=== PATIENT | female | born 1940 | race Caucasian/White ===

== ENCOUNTER 2016-07-26 12:20 | Inpatient (IN) | payer OTHER ==
--- NOTE | 2016-07-26 12:43 | PDOC ---
History of Present Illness - General Stated Complaint: Nausea/Vomiting Time Seen by Provider: 07/26/16 12:25 History Source: Patient, Family - History of Present Illness Timing/Duration: other Associated Symptoms: reports: cough, malaise, nausea/vomiting, shortness of breath. denies: fever/chills Past History - Past Medical History Allergies/Adverse Reactions: Allergies Allergy/AdvReac Type Severity Reaction Status Date / Time No Known Drug Allergies Allergy Verified 07/26/16 12:55 Home Medications: Ambulatory Orders Acidoph/L.bulg/Bif.b/S.thermop [Siomara-Bid Caplet] 1 each PO BID 07/26/16 Albuterol 2.5/Ipratropium 0.5 [Duoneb -] 1 neb IH QID 07/26/16 Ascorbic Acid [Vitamin C -] 1,000 mg PO DAILY 07/26/16 Aspirin [ASA -] 81 mg PO DAILY 07/26/16 Atorvastatin Calcium 20 mg PO DAILY 07/26/16 Calcium Carbonate [Oyster Shell Calcium] 500 mg PO BID 07/26/16 Enalapril Maleate [Vasotec -] 5 mg PO BID 07/26/16 Levothyroxine Sodium [Levo-T] 137 mcg PO DAILY 07/26/16 Metoprolol Succinate [Toprol Xl -] 50 mg PO DAILY 07/26/16 Multivitamins [Tab-A-Vit -] 1 tab PO DAILY 07/26/16 Naph,Mb-Db/K pH,Mbdb [PHOS-NaK PACKET -] 1 packet GT BID 07/26/16 Pantoprazole Sodium [Protonix -] 40 mg PO DAILY 07/26/16 Pilocarpine HCl [Isopto Carpine] 2 drop OP PRN 07/26/16 Torsemide [Demadex] 40 mg PO DAILY 07/26/16 Tramadol HCl [Ultram] 50 mg PO Q6H 07/26/16 Anemia: No Asthma: No Cancer: No Cardiac Disorders: Yes (quad. bypass) CVA: No COPD: No CHF: Yes Dementia: No Diabetes: Yes GI Disorders: Yes (reflux) Disorders: No HTN: Yes Hypercholesterolemia: Yes Liver Disease: No Seizures: No Thyroid Disease: Yes (hypo) - Surgical History Abdominal Surgery: No Appendectomy: No Cardiac Surgery: Yes (quad. BYPASS 2000) Cholecystectomy: No Lung Surgery: No Neurologic Surgery: No Orthopedic Surgery: Yes (L CARPAL TUNNEL,l wrist orif, r wrist tendonitis sx,) - Immunization History Immunization Up to Date: Yes - Psycho/Social/Smoking Cessation Hx Anxiety: No Suicidal Ideation: No Smoking Status: Yes Smoking History: Former smoker Have you smoked in the past 12 months: No Number of Cigarettes Smoked Daily: 0 If you are a former smoker, when did you quit?: 1994 Cigars Per Day: 0 Hx Alcohol Use: No Drug/Substance Use Hx: No Substance Use Type: None Hx Substance Use Treatment: No Review of Systems - Review of Systems Constitutional: No: Chills, Fever Respiratory: Yes: Cough, Shortness of Breath Cardiac (ROS): No: Chest Pain, Palpitations, Syncope ABD/GI: Yes: Nausea. No: Vomiting, Abdominal cramping : No: Dysuria *Physical Exam - Physical Exam General Appearance: Yes: Appropriately Dressed, Other (appears uncomfortable) HEENT: positive: Normal Voice Neck: positive: Supple Respiratory/Chest: positive: Lungs Clear, Normal Breath Sounds. negative: Respiratory Distress Cardiovascular: positive: Regular Rate, S1, S2 Gastrointestinal/Abdominal: positive: Soft. negative: Tender Extremity: positive: Normal Inspection, Pedal Edema Integumentary: positive: Dry, Warm Neurologic: positive: Fully Oriented, Alert, Normal Mood/Affect ED Treatment Course - LABORATORY CBC & Chemistry Diagram: 07/26/16 13:37 07/26/16 13:37 - RADIOLOGY Radiology Studies Ordered: Category Date Time Status CHEST X-RAY PORTABLE* [RAD] Stat Radiology 07/26/16 12:42 Ordered Medical Decision Making - Medical Decision Making 07/26/16 12:43 75-year-old female, hypertension, hyperlipidemia, CAD status post CABG, CHF on Lasix and oxygen dependent, PVD, COPD status post surgery for bowel perf/ peritonitis, sent from [facility] for cough with nausea and possibly worsening of her shortness of breath. Patient has history of chronic pedal edema, which is intermittent but for the past 3 weeks has been persistent as per daughter. Patient states she feels weak and dizzy. Denies chest pain, diaphoresis, nausea, vomiting, headache, focal weakness, abdominal pain, change in bowel movements or dysuria See exam Cough w/ worsening sob ?PNA vs BNP flare vs ACS Sating 89-90% on 5 L Chest/lungs clear w/ 2+ edema -ekg -cxr -labs -anticipate admission 07/26/16 13:31 07/26/16 13:43 CXR w/ multiple R sided infiltrates and pleural effusion. Abx to cover HAP in progress. Will admit 07/26/16 14:50 BNP >40K w/ trop of 0.6 w/ unchanged ekg as d/w Dr Rangel, m/l demand ischemia. Elevated LFTs m/l due to CHF flare. Pt has no abd pain and non-tender on exam. Lasix in progress w/ cards consult pending. As per d/w Dr Mata, Dr diaz of cards to be c/s. 07/26/16 16:02 ED nurse called me over to pt's bedside as pt became diaphoretic. 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 As per Dr Rangel, will give asa, heparin and c/w cards. Rpt trop pending. Of note, pt refusing intubation if necessary. 07/26/16 16:06 07/26/16 16:08 As per cards, pt to also get nitropaste. Pt currently has ready bed on tele floor 07/26/16 16:18 07/26/16 18:25 Dr. Nickerson called to get an update on patient and informed of disposition. *DC/Admit/Observation/Transfer Diagnosis at time of Disposition: Transaminitis Pneumonia Qualifiers: Pneumonia type: due to unspecified organism Laterality: right Lung location: unspecified part of lung Qualified Code(s): J18.9 - Pneumonia, unspecified organism ARF (acute renal failure) Qualifiers: Acute renal failure type: unspecified Qualified Code(s): N17.9 - Acute kidney failure, unspecified CHF (congestive heart failure) Qualifiers: Congestive heart failure type: unspecified congestive heart failure type Congestive heart failure chronicity: acute on chronic Qualified Code(s): I50.9 - Heart failure, unspecified - Discharge Dispostion Condition at time of disposition: Fair Admit: Yes - Referrals
[2016-07-26 12:54] VITALS: BMI 28.1
[2016-07-26] MEDS ORDERED: ONDANSETRON 4 MG/2 ML VIAL IVPUSH ONE ×2 (13:21→16:09)
[2016-07-26] MEDS ORDERED: ONDANSETRON 4 MG/2 ML VIAL ONE ×2 (13:22→15:55)
[2016-07-26] MEDS ORDERED: CEFEPIME HCL 2 GM VIAL (RESTRICTED TO ID) IVPB ONE (13:42)
[2016-07-26] MEDS ORDERED: AZITHROMYCIN IVPB 500 MG in DEXTROSE 5%-WATER - 250 ML IVPB ONE (13:42)
[2016-07-26] MEDS ORDERED: VANCOMYCIN 1,000 MG in DEXTROSE 5%-WATER - 250 ML IVPB ONE (13:42)
[2016-07-26 13:54] LABS: BASOPHIL 0.3 % (0-2.0); EOSINOPHIL 0.1 % (0-4.5); MCH 24.9 pg (25.7-33.7); MCHC 30.5 g/dl (32.0-36.0); MEAN CELL VOLUME 81.8 fl (80-96); NEUTROPHILS 77.9 % (42.8-82.8); PLATELET COUNT 361 K/MM3 (134-434); RDW 18.7 % (11.6-15.6); WHITE BLOOD COUNT 11.9 K/mm3 (4.0-10.0)
[2016-07-26] MEDS ORDERED: VANCOMYCIN 1 GRAM (PRE-DOCKED) 250 ML IVPB ONE (14:12)
[2016-07-26 14:21] LABS: ALBUMIN 2.9 g/dl (3.4-5.0); BILIRUBIN,TOTAL 0.8 mg/dL (0.2-1.0); CALCIUM 8.9 mg/dL (8.5-10.1); CREATININE 2.9 mg/dL (0.55-1.02); TOT PROT 7.6 g/dl (6.4-8.2)
[2016-07-26 14:38] LABS: TROPONIN I 0.61 ng/ml (0.00-0.05)
[2016-07-26] MEDS ORDERED: AZITHROMYCIN IVPB 250 ML IVPB ONE (14:46)
[2016-07-26] MEDS ORDERED: CEFEPIME 100 ML IVPB ONE (14:46)
[2016-07-26] MEDS ORDERED: FUROSEMIDE 40 MG/4 ML INJECTABLE VIAL IVPUSH ONE (14:55)
[2016-07-26] MEDS ORDERED: FUROSEMIDE 40 MG/4 ML INJECTABLE VIAL ONE (15:09)
[2016-07-26 15:38] LABS: URINE APPEARANCE CLEAR; URINE BILIRUBIN NEGATIVE (NEGATIVE); URINE BLOOD NEGATIVE (NEGATIVE); URINE COLOR YELLOW; URINE GLUCOSE (UA) NEGATIVE (NEGATIVE); URINE KETONE NEGATIVE (NEGATIVE); URINE LEUK ESTERASE NEGATIVE (NEGATIVE); URINE NITRITE NEGATIVE (NEGATIVE); URINE PROTEIN NEGATIVE (NEGATIVE); URINE UROBILINOGEN NEGATIVE E.U./dl (0.2-1.0)
[2016-07-26] MEDS ORDERED: HEPARIN NA (PORCINE) 5,000 UNITS/ML 1ML VIAL ONE (15:55)
[2016-07-26] MEDS ORDERED: HEPARIN INFUSION - 500 ML IVPB ONE (15:55)
[2016-07-26] MEDS ORDERED: ASPIRIN 325 MG TABLET ONE (15:55)
[2016-07-26] MEDS ORDERED: ASPIRIN 325 MG ENTERIC COATED TABLET (FP) PO ONE (16:03)
[2016-07-26] MEDS ORDERED: HEPARIN NA (PORCINE) 5,000 UNITS/ML 1ML VIAL IVPUSH PRN ×2 (16:04)
[2016-07-26] MEDS: HEPARIN - 25,000 UNIT in SODIUM CHLORIDE 495 ML IV SCH (16:08)
[2016-07-26] MEDS ORDERED: HEPARIN NA (PORCINE) 5,000 UNITS/ML 1ML VIAL IVPUSH ONE (16:10)
[2016-07-26 17:14] LABS: TROPONIN I 0.58 ng/ml (0.00-0.05)
[2016-07-26] MEDS: NITROGLYCERIN 2% OINTMENT - 1GM PACKET TD SCH (17:35)
[2016-07-27] MEDS: NITROGLYCERIN 2% OINTMENT - 1GM PACKET TD SCH ×4 (00:58→17:39)
--- NOTE | 2016-07-27 12:06 | HP ---
Admitting History and Physical - Admission History of Present Illness: 75-year-old female, hypertension, hyperlipidemia, CAD status post CABG, CHF on Lasix and oxygen dependent, PVD, COPD status post surgery for bowel perf/ peritonitis, sent from [facility] for cough with nausea and possibly worsening of her shortness of breath. Patient has history of chronic pedal edema, which is intermittent but for the past 3 weeks has been persistent as per daughter. Patient states she feels weak and dizzy. PT ON BIPAP UNABLE TO OBTAIN FURTHER HISTORY FROM PATIENT - Past Medical History Cardiovascular: Yes: CAD, CHF, HTN, Hyperlipdemia. No: AFIB Pulmonary: Yes: COPD. No: O2 Dependent ENT: Yes: Allergic Rhinitis Endocrine: Yes: Hypothyroidism. No: Fannie's Disease - Past Surgical History Past Surgical History: Yes: CABG, Carotid Endarterectomy (BILATERAL WITH REVISION OF BILATERAL CAROTIDS ), Colostomy, Vein Stripping/Ligation - Smoking History Smoking history: Former smoker Have you smoked in the past 12 months: No Aproximately how many cigarettes per day: 0 If you are a former smoker, when did you quit?: 1994 - Alcohol/Substance Use Hx Alcohol Use: No History of Substance Use: reports: None - Social History History of Recent Travel: No Home Medications - Allergies Allergies/Adverse Reactions: Allergies Allergy/AdvReac Type Severity Reaction Status Date / Time No Known Drug Allergies Allergy Verified 07/26/16 12:55 - Home Medications Home Medications: Ambulatory Orders Acidoph/L.bulg/Bif.b/S.thermop [Siomara-Bid Caplet] 1 each PO BID 07/26/16 Albuterol 2.5/Ipratropium 0.5 [Duoneb -] 1 neb IH QID 07/26/16 Ascorbic Acid [Vitamin C -] 1,000 mg PO DAILY 07/26/16 Aspirin [ASA -] 81 mg PO DAILY 07/26/16 Atorvastatin Calcium 20 mg PO DAILY 07/26/16 Calcium Carbonate [Oyster Shell Calcium] 500 mg PO BID 07/26/16 Enalapril Maleate [Vasotec -] 5 mg PO BID 07/26/16 Levothyroxine Sodium [Levo-T] 137 mcg PO DAILY 07/26/16 Metoprolol Succinate [Toprol Xl -] 50 mg PO DAILY 07/26/16 Multivitamins [Tab-A-Vit -] 1 tab PO DAILY 07/26/16 Naph,Mb-Db/K pH,Mbdb [PHOS-NaK PACKET -] 1 packet GT BID 07/26/16 Pantoprazole Sodium [Protonix -] 40 mg PO DAILY 07/26/16 Pilocarpine HCl [Isopto Carpine] 2 drop OP PRN 07/26/16 Torsemide [Demadex] 40 mg PO DAILY 07/26/16 Tramadol HCl [Ultram] 50 mg PO Q6H 07/26/16 Review of Systems - Review of Systems Respiratory: reports: SOB, SOB on Exertion Physical Examination Vital Signs: Vital Signs Temperature 97.5 F L 07/27/16 07:50 Pulse Rate 59 L 07/27/16 07:50 Respiratory Rate 18 07/27/16 07:50 Blood Pressure 128/56 07/27/16 07:50 O2 Sat by Pulse Oximetry (%) 99 07/27/16 09:38 Cardiovascular: Yes: Murmur, S1, S2 Respiratory: Yes: On BiPap, Rhonchi, Wheezes Gastrointestinal: Yes: Normal Bowel Sounds, Soft, Tenderness Edema: Yes Neurological: Yes: Alert Imaging - Results Chest X-ray: Report Reviewed (R/O PNA) Problem List - Problems (1) Pneumonia Assessment/Plan: IV ABX ID CONSULT F/U CXR Code(s): J18.9 - PNEUMONIA, UNSPECIFIED ORGANISM Qualifiers: Pneumonia type: due to unspecified organism Laterality: right Lung location: unspecified part of lung Qualified Code(s): J18.9 - Pneumonia, unspecified organism (2) Acute hypercapnic respiratory failure Assessment/Plan: BIPAP NEBS PULM CONSULT Code(s): J96.02 - ACUTE RESPIRATORY FAILURE WITH HYPERCAPNIA (3) Acute on chronic systolic (congestive) heart failure Assessment/Plan: MONITOR AND PRN LASIX Code(s): I50.23 - ACUTE ON CHRONIC SYSTOLIC (CONGESTIVE) HEART FAILURE (4) DM2 (diabetes mellitus, type 2) Assessment/Plan: BGM ENDO Code(s): E11.9 - TYPE 2 DIABETES MELLITUS WITHOUT COMPLICATIONS (5) Sepsis Assessment/Plan: IV ABX CULTURES ID Code(s): A41.9 - SEPSIS, UNSPECIFIED ORGANISM (6) ARF (acute renal failure) Assessment/Plan: REPEAT LABS RENAL Code(s): N17.9 - ACUTE KIDNEY FAILURE, UNSPECIFIED Qualifiers: Acute renal failure type: unspecified Qualified Code(s): N17.9 - Acute kidney failure, unspecified (7) Transaminitis Assessment/Plan: FOLLOW LABS US GI Code(s): R74.0 - NONSPEC ELEV OF LEVELS OF TRANSAMNS & LACTIC ACID DEHYDRGNSE
--- NOTE | 2016-07-27 12:26 | CONSULT ---
Consult Consult Specialty:: PULMONARY Referred by:: TATY Reason for Consultation:: SOB - History of Present Illness Chief Complaint: SOB History of Present Illness: 75-year-old female, hypertension, hyperlipidemia, CAD status post CABG, CHF on Lasix and oxygen dependent, PVD, COPD status post surgery for bowel perf/ peritonitis, sent from [facility] for cough with nausea and possibly worsening of her shortness of breath. Patient has history of chronic pedal edema, which is intermittent but for the past 3 weeks has been persistent as per daughter. Patient states she feels weak and dizzy. - History Source History Provided By: Medical Record Limitations to Obtaining History: Clinical Condition - Past Medical History Cardio/Vascular: Yes: CAD, CHF, HTN, Hyperlipdemia. No: AFIB Pulmonary: Yes: COPD. No: O2 Dependent ENT: Yes: Allergic Rhinitis Endocrine: Yes: Hypothyroidism. No: Fannie's Disease - Past Surgical History Past Surgical History: Yes: CABG, Carotid Endarterectomy (BILATERAL WITH REVISION OF BILATERAL CAROTIDS ), Colostomy, Vein Stripping/Ligation - Alcohol/Substance Use Hx Alcohol Use: No History of Substance Use: reports: None - Smoking History Smoking history: Former smoker Have you smoked in the past 12 months: No Aproximately how many cigarettes per day: 0 If you are a former smoker, when did you quit?: 1994 - Social History History of Recent Travel: No Home Medications - Allergies Allergies/Adverse Reactions: Allergies Allergy/AdvReac Type Severity Reaction Status Date / Time No Known Drug Allergies Allergy Verified 07/26/16 12:55 - Home Medications Home Medications: Ambulatory Orders Acidoph/L.bulg/Bif.b/S.thermop [Siomara-Bid Caplet] 1 each PO BID 07/26/16 Albuterol 2.5/Ipratropium 0.5 [Duoneb -] 1 neb IH QID 07/26/16 Ascorbic Acid [Vitamin C -] 1,000 mg PO DAILY 07/26/16 Aspirin [ASA -] 81 mg PO DAILY 07/26/16 Atorvastatin Calcium 20 mg PO DAILY 07/26/16 Calcium Carbonate [Oyster Shell Calcium] 500 mg PO BID 07/26/16 Enalapril Maleate [Vasotec -] 5 mg PO BID 07/26/16 Levothyroxine Sodium [Levo-T] 137 mcg PO DAILY 07/26/16 Metoprolol Succinate [Toprol Xl -] 50 mg PO DAILY 07/26/16 Multivitamins [Tab-A-Vit -] 1 tab PO DAILY 07/26/16 Naph,Mb-Db/K pH,Mbdb [PHOS-NaK PACKET -] 1 packet GT BID 07/26/16 Pantoprazole Sodium [Protonix -] 40 mg PO DAILY 07/26/16 Pilocarpine HCl [Isopto Carpine] 2 drop OP PRN 07/26/16 Torsemide [Demadex] 40 mg PO DAILY 07/26/16 Tramadol HCl [Ultram] 50 mg PO Q6H 07/26/16 Family Disease History - Family Disease History Family History: Unremarkable Review of Systems Unable to obtain ROS, reason: UNABLE DUE TO BIPAP Physical Exam Vital Sings: Vital Signs Temperature 97.5 F L 07/27/16 07:50 Pulse Rate 59 L 07/27/16 07:50 Respiratory Rate 18 07/27/16 07:50 Blood Pressure 128/56 07/27/16 07:50 O2 Sat by Pulse Oximetry (%) 99 07/27/16 09:38 Constitutional: Yes: Anxious Eyes: Yes: EOM Intact HENT: Yes: Normocephalic Neck: Yes: Trachea Midline Cardiovascular: Yes: S1, S2 Respiratory: Yes: Rhonchi, Wheezes Gastrointestinal: Yes: Soft, Other (OSTOMY FUNCTIONING) Renal/: Yes: WNL Edema: LLE: 2+, RLE: 2+ Neurological: Yes: Alert Labs: REVIEWED Imaging - Results Chest X-ray: Image Reviewed Problem List - Problems (1) CHF (congestive heart failure) Code(s): I50.9 - HEART FAILURE, UNSPECIFIED Qualifiers: Congestive heart failure type: unspecified congestive heart failure type Congestive heart failure chronicity: acute on chronic Qualified Code(s ): I50.9 - Heart failure, unspecified (2) Pneumonia Code(s): J18.9 - PNEUMONIA, UNSPECIFIED ORGANISM Qualifiers: Pneumonia type: due to unspecified organism Laterality: right Lung location: unspecified part of lung Qualified Code(s): J18.9 - Pneumonia, unspecified organism (3) Transaminitis Code(s): R74.0 - NONSPEC ELEV OF LEVELS OF TRANSAMNS & LACTIC ACID DEHYDRGNSE (4) Acute hypercapnic respiratory failure Code(s): J96.02 - ACUTE RESPIRATORY FAILURE WITH HYPERCAPNIA (5) Acute on chronic systolic (congestive) heart failure Code(s): I50.23 - ACUTE ON CHRONIC SYSTOLIC (CONGESTIVE) HEART FAILURE (6) CAD (coronary artery disease) Code(s): I25.10 - ATHSCL HEART DISEASE OF [place] CORONARY ARTERY W/O ANG PCTRS Assessment/Plan ACUTE ON CHRONIC RESP FAILURE/O2 DEPENDANT NOW ON BIPAP LIKELY RIGHT LOWER LOBE INFILTRATE/PNEUMONIA?POST INFLUENZA BNP/LFT'S/TROPONIN ELEVATED PANCULTURE/CONTINUE BIPAP/CHECK ABG START ANTIBIOTICS/?CONTINUE TAMIFLU/CHECK NASAL SWAB CARDIO EVAL/CYCLE TROPS/SERIAL EKG'S CONTINUE TELE MONITORING WILL FOLLOW Hawa LOYA MD
[2016-07-27 12:29] LABS: BASOPHIL 0.2 % (0-2.0); EOSINOPHIL 0.1 % (0-4.5); MCHC 31.1 g/dl (32.0-36.0); MEAN CELL VOLUME 80.3 fl (80-96); MEAN PLT VOLUME 9.3 fl (7.5-11.1); NEUTROPHILS 81.4 % (42.8-82.8); PLATELET COUNT 335 K/MM3 (134-434)
--- NOTE | 2016-07-27 12:40 | PN ---
Progress Note (short form) - Note Progress Note: ID Consult dictated HCAP RLL Possible sepsis secondary to pneumonia CHF Azotemia Elevated LFTs Possible recent Influenza Pending c/s, empiric zosyn + vancomycin, adjusted for azotemia
[2016-07-27 12:42] LABS: ALBUMIN 2.8 g/dl (3.4-5.0); CALCIUM 9.1 mg/dL (8.5-10.1); CREATININE 3.1 mg/dL (0.55-1.02)
[2016-07-27] MEDS ORDERED: VANCOMYCIN 1 GRAM (PRE-DOCKED) 250 ML IVPB ONE (12:45)
[2016-07-27 12:58] LABS: TOT PROT 7.1 g/dl (6.4-8.2)
[2016-07-27] MEDS ORDERED: CEFEPIME 1 GM in DEXTROSE 5%-WATER - 100 ML IVPB ONE (13:00)
[2016-07-27 13:07] LABS: TROPONIN I 0.55 ng/ml (0.00-0.05)
--- NOTE | 2016-07-27 13:09 | CONSULT ---
Cardiology Consult (text) - Consultation Consultation Note: Cardiology (Dr. Denson covering Dr. Ramsey) Patient seen and examined 75 yo with h/o hypertension, hyperlipidemia Known coronary artery disease s/p CABG x 4 (2000) Iischemic cardiomyopathy, peripheral vascular disease, carotid atherosclerosis s /p bilateral CEA Chronic obstructive pulmonary disease, Admission 3 months ago for perforated colon s/p surgery and sepsis whose hospital course was complicated by biventricular cardiomyopathy and volume overload Now p/w sob, nausea and cough, concerns for sepsis secondary to pneumonia ( influenza) with likely acute heart failure exacerbation. Started on empiric Abx BNP 45,304 and trop 0.61 to 0.58 to 0.55 ALL/Meds/Soc Hx/Fam Hx reviewed Unable to obtain ROS as on BIPAP VS: No BP taken, P 60s Dyspneic on BiPAP JVP normal Regular with (+) sytolic murmur Lungs with decrease BS and bibasilar crackles (+) LE edema, cool ECG: NSR at 69/min with Posterior fasicular block and T-wave inversions in III and aVF LABS:WBC 15, Hgb 10.8, Plt 335, PTT 83.7 Cr 3.1, Trop 0.55 Lactate 7.09, AST 1253, ALT 625 CXR: Atelectasis vs RLB infitrate EcHO: 04/2016: Mildly reduced LV function, global HK, moderate MR IMP: 1) (+) troponin -Likely demand related -Trending down -Continue asa and on IV UFH -DC statin given LFTs -OK to contiunue BB if BP tolerates 2) CHF -Likely related to onoing pulmonary infection (?pneumonia) -Has CMY from last admission -Was treated with Torsemide -Would start Lasix 80mg BID (elevated Cr)
[2016-07-27 13:23] LABS: ARTERIAL BLOOD GAS BASE EXCESS -5.1 meq/l (-2-2); ARTERIAL BLOOD GAS HCO3 18.6 meq/L (22-26); ARTERIAL BLOOD GAS pH 7.39 (7.35-7.45)
[2016-07-27 13:24] LABS: ALLENS TEST POSITIVE; ART PUNCT SITE RIGHT RADIAL; LPM/O2% 100%; MECH. VENT. BIPAP; PT. ON O2? YES; TYPE OF O2 BIPAP; VT/PRESS 14/6
[2016-07-27 13:25] LABS: VENT RATE 14
--- NOTE | 2016-07-27 13:45 | CONS ---
DATE OF CONSULTATION: 07/27/2016 INFECTIOUS DISEASE CONSULTATION HISTORY OF PRESENT ILLNESS: The patient is a 75-year-old female evaluated for pneumonia. The patient was admitted from the shelter with reports of nausea, congestion and moist cough. She was found to be cold and clammy, tachypneic with an O2 saturation of 84%. She was transferred to [facility] where a chest x-ray shows a right lower lobe infiltrate and possible effusion. The patient reports cough productive of whitish sputum. She denies any chest pain, no reported hemoptysis. According to the nurses notes she had recently been started on Tamiflu presumably for acute influenza. No additional details are available however, it appears that today would have been the 5th day of her treatment. PAST MEDICAL HISTORY: Positive for coronary artery disease, congestive heart failure, diabetes mellitus, hypertension, hyperlipidemia, hypothyroidism. PAST SURGICAL HISTORY: Status post coronary artery bypass, carotid endarterectomy and colostomy. ALLERGIES: No known drug allergies. MEDICATIONS: Include levothyroxine, pantoprazole, Demodex, metoprolol, multivitamin, aspirin, enalapril, Lipitor. SOCIAL HISTORY: She resides in a [facility] facility. She was last hospitalized in March for congestive heart failure and urinary tract infection. She is a former smoker. REVIEW OF SYSTEMS: NEUROLOGIC: No loss of consciousness, seizure activity, focal weakness. CARDIAC: Negative for chest pain or palpitations. RESPIRATORY: As per HPI. GASTROINTESTINAL: Positive for nausea, vomiting, but no diarrhea. GENITOURINARY: Negative for urinary tract infection. LABORATORY DATA: White count is 11.9, hematocrit 34.9, platelet count 361. BUN 88, creatinine 2.9, sodium 129. Urinalysis negative. Chest x-ray shows increased markings right lower lung field. Liver enzymes total bilirubin 0.8, alkaline phosphatase 392, AST 365, ALT 289. Cultures are pending. PHYSICAL EXAMINATION: GENERAL: She is awake. She is slightly short of breath on BiPAP. VITAL SIGNS: Temperature 97.5, blood pressure 128/56, pulse 59 regular, respirations 18 per minute. HEENT: Sclerae anicteric. The patient has BiPAP in place. HEART: S1, S2, no murmur. LUNGS: Diminished breath sounds bilaterally. ABDOMEN: Obese, soft, no tenderness, no mass, rebound or rigidity. EXTREMITIES: Positive for edema. IMPRESSION: 1. Healthcare acquired right lower lobe pneumonia. 2. Possible sepsis secondary to pneumonia. 3. Congestive heart failure. 4. Azotemia. 5. Elevated liver enzymes. No further details are available regarding possible diagnosis of recent influenza. Her pneumonitis may represents a post influenza pneumonia possible secondary to staph. Elevated liver enzymes may also be a reflection of recent viral illness, however, may also represent passive congestion from congestive heart failure. PLAN: Will obtain sputum culture, urine legionella and pneumococcal antigens. Empiric antibiotic coverage with Zosyn and vancomycin adjusted for azotemia pending culture results. Continue BiPAP support. According to the shelter records it appears that she would be completing her course of Tamiflu for influenza today. We will not continue. Will follow. Thank you for the kind referral. JENNIFER HERNANDEZ M.D. [id number]
[2016-07-27] MEDS: ALBUTEROL SO4 2.5/IPRATROPIUM 0.5 INH SOL 3 ML VIAL.NEB. NEB SCH ×3 (13:50→23:15)
[2016-07-27] MEDS: PIPERACILLIN/TAZOB 2.25 GM 50 ML IVPB SCH ×2 (15:04→17:39)
--- NOTE | 2016-07-27 16:13 | EKG ---
Test Reason : Blood Pressure : / mmHG Vent. Rate : 058 BPM Atrial Rate : 058 BPM P-R Int : 190 ms QRS Dur : 096 ms QT Int : 460 ms P-R-T Axes : 057 119 253 degrees QTc Int : 451 ms SINUS BRADYCARDIA WITH SINUS ARRHYTHMIA LEFT POSTERIOR FASCICULAR BLOCK ABNORMAL ECG WHEN COMPARED WITH ECG OF 26-JUL-2016 15:51, VENT. RATE HAS DECREASED BY 28 BPM NON-SPECIFIC CHANGE IN ST SEGMENT IN ANTERIOR LEADS NONSPECIFIC T WAVE ABNORMALITY NOW EVIDENT IN ANTERIOR LEADS Confirmed by DORA GONZALEZ MD ([id number]) on 07/27/2016 4:13:24 PM Referred By: Francis SOLOMON Confirmed By:DORA GONZALEZ MD
--- NOTE | 2016-07-27 16:30 | EKG ---
Test Reason : Blood Pressure : / mmHG Vent. Rate : 069 BPM Atrial Rate : 069 BPM P-R Int : 176 ms QRS Dur : 096 ms QT Int : 424 ms P-R-T Axes : 086 121 -35 degrees QTc Int : 454 ms NORMAL SINUS RHYTHM LEFT POSTERIOR FASCICULAR BLOCK CANNOT RULE OUT ANTERIOR INFARCT , AGE UNDETERMINED T WAVE ABNORMALITY, CONSIDER INFERIOR ISCHEMIA ABNORMAL ECG WHEN COMPARED WITH ECG OF 10-APR-2016 23:19, MINIMAL CRITERIA FOR ANTERIOR INFARCT ARE NOW PRESENT T WAVE INVERSION NOW EVIDENT IN LATERAL LEADS Confirmed by DORA GONZALEZ MD ([id number]) on 07/27/2016 4:30:11 PM Referred By: Confirmed By:DORA GONZALEZ MD
[2016-07-27] MEDS ORDERED: SODIUM POLYSTYRENE SULFONATE 15 GM/60 ML BOTTLE PO ONE (17:12)
[2016-07-27] MEDS: INSULIN SLIDING SCALE (NOVOLOG) 1 VIAL SQ SCH ×2 (17:35→22:27)
[2016-07-27] MEDS: HEPARIN - 25,000 UNIT in SODIUM CHLORIDE 495 ML IV SCH (17:40)
--- NOTE | 2016-07-27 20:39 | CONSULT ---
Consult Consult Specialty:: endocrine Referred by:: dr.annabi pennington Reason for Consultation:: hypothyroid - History of Present Illness Chief Complaint: weakness,short of breath History of Present Illness: 75-year-old female, hypertension, hyperlipidemia, CAD status post CABG, CHF on Lasix and oxygen dependent, PVD, COPD status post surgery for bowel perf/ peritonitis, sent from [facility] for cough with nausea and possibly worsening of her shortness of breath.has felt weakness,memory loss,muscle pain - History Source History Provided By: Patient - Past Medical History Cardio/Vascular: Yes: CAD, CHF, HTN, Hyperlipdemia. No: AFIB Pulmonary: Yes: COPD. No: O2 Dependent ENT: Yes: Allergic Rhinitis Endocrine: Yes: Hypothyroidism. No: Fannie's Disease - Past Surgical History Past Surgical History: Yes: CABG, Carotid Endarterectomy (BILATERAL WITH REVISION OF BILATERAL CAROTIDS ), Colostomy, Vein Stripping/Ligation - Alcohol/Substance Use Hx Alcohol Use: No History of Substance Use: reports: None - Smoking History Smoking history: Former smoker Have you smoked in the past 12 months: No Aproximately how many cigarettes per day: 0 If you are a former smoker, when did you quit?: 1994 - Social History History of Recent Travel: No Home Medications - Allergies Allergies/Adverse Reactions: Allergies Allergy/AdvReac Type Severity Reaction Status Date / Time No Known Drug Allergies Allergy Verified 07/26/16 12:55 - Home Medications Home Medications: Ambulatory Orders Acidoph/L.bulg/Bif.b/S.thermop [Siomara-Bid Caplet] 1 each PO BID 07/26/16 Albuterol 2.5/Ipratropium 0.5 [Duoneb -] 1 neb IH QID 07/26/16 Ascorbic Acid [Vitamin C -] 1,000 mg PO DAILY 07/26/16 Aspirin [ASA -] 81 mg PO DAILY 07/26/16 Atorvastatin Calcium 20 mg PO DAILY 07/26/16 Calcium Carbonate [Oyster Shell Calcium] 500 mg PO BID 07/26/16 Enalapril Maleate [Vasotec -] 5 mg PO BID 07/26/16 Levothyroxine Sodium [Levo-T] 137 mcg PO DAILY 07/26/16 Metoprolol Succinate [Toprol Xl -] 50 mg PO DAILY 07/26/16 Multivitamins [Tab-A-Vit -] 1 tab PO DAILY 07/26/16 Naph,Mb-Db/K pH,Mbdb [PHOS-NaK PACKET -] 1 packet GT BID 07/26/16 Pantoprazole Sodium [Protonix -] 40 mg PO DAILY 07/26/16 Pilocarpine HCl [Isopto Carpine] 2 drop OP PRN 07/26/16 Torsemide [Demadex] 40 mg PO DAILY 07/26/16 Tramadol HCl [Ultram] 50 mg PO Q6H 07/26/16 Review of Systems - Review of Systems Constitutional: reports: Lethargy Eyes: reports: No Symptoms HENT: reports: Throat Pain Neck: reports: No Symptoms Cardiovascular: reports: No Symptoms Respiratory: reports: Exercise Intolerance, SOB, SOB on Exertion Gastrointestinal: reports: No Symptoms Genitourinary: reports: No Symptoms Breasts: reports: No Symptoms Reported Musculoskeletal: reports: No Symptoms, Decreased ROM, Muscle Pain, Muscle Weakness Integumentary: reports: No Symptoms Neurological: reports: Unsteady Gait, Weakness Endocrine: reports: Unexplained Weight Gain Physical Exam Vital Signs: Vital Signs Temperature 97.5 F L 07/27/16 07:50 Pulse Rate 63 07/27/16 14:00 Respiratory Rate 18 07/27/16 14:00 Blood Pressure 126/79 07/27/16 14:00 O2 Sat by Pulse Oximetry (%) 99 07/27/16 14:50 Constitutional: Yes: Anxious Eyes: Yes: WNL HENT: Yes: Atraumatic Neck: Yes: Supple Cardiovascular: Yes: Bradycardia Respiratory: Yes: SOB on Exertion, Tachypnea Gastrointestinal: Yes: Normal Bowel Sounds ...Rectal Exam: Yes: Deferred Renal/: Yes: WNL Breast(s): Yes: WNL Musculoskeletal: Yes: Back Pain, Joint Stiffness, Muscle Weakness Extremities: Yes: WNL Edema: Yes Integumentary: Yes: Jaundice Psychiatric: Yes: Alert, Oriented Labs: CBC, BMP 07/27/16 12:00 07/27/16 12:00 Problem List - Problems (2) CHF (congestive heart failure) Code(s): I50.9 - HEART FAILURE, UNSPECIFIED Qualifiers: Congestive heart failure type: unspecified congestive heart failure type Congestive heart failure chronicity: acute on chronic Qualified Code(s ): I50.9 - Heart failure, unspecified (3) Acute hypercapnic respiratory failure Code(s): J96.02 - ACUTE RESPIRATORY FAILURE WITH HYPERCAPNIA (4) Hyponatremia Code(s): E87.1 - HYPO-OSMOLALITY AND HYPONATREMIA (5) Hypothyroid Code(s): E03.9 - HYPOTHYROIDISM, UNSPECIFIED Assessment/Plan Current Active Problems ARF (acute renal failure) (Acute) CHF (congestive heart failure) (Acute) Pneumonia (Acute) Transaminitis (Acute) hypothyroidism dm Abnormal Lab Results 07/26/16 07/26/16 07/27/16 20:30 22:00 05:35 WBC MCHC RDW PTT (Actin FS) > 400.0 H > 400.0 H 83.7 H D ABG pCO2 at Pt Temp ABG pO2 at Pt Temp ABG HCO3 ABG O2 Sat (Measured) ABG Base Excess Sodium Potassium Chloride Anion Gap BUN Creatinine Lactic Acid AST ALT Alkaline Phosphatase Troponin I Albumin 07/27/16 07/27/16 07/27/16 12:00 12:00 12:00 WBC 15.0 H MCHC 31.1 L RDW 19.0 H PTT (Actin FS) ABG pCO2 at Pt Temp ABG pO2 at Pt Temp ABG HCO3 ABG O2 Sat (Measured) ABG Base Excess Sodium 129 L Potassium 5.9 H Chloride 89 L Anion Gap 19 H BUN 99 H Creatinine 3.1 H Lactic Acid 7.090 H* AST 1253 H ALT 675 H D Alkaline Phosphatase 360 H Troponin I 0.55 H Albumin 2.8 L 07/27/16 13:20 WBC MCHC RDW PTT (Actin FS) ABG pCO2 at Pt Temp 31.8 L ABG pO2 at Pt Temp 281.0 H* D ABG HCO3 18.6 L ABG O2 Sat (Measured) 100.0 H* ABG Base Excess -5.1 L Sodium Potassium Chloride Anion Gap BUN Creatinine Lactic Acid AST ALT Alkaline Phosphatase Troponin I Albumin Laboratory Results - last 24 hr 07/26/16 07/26/16 07/27/16 20:30 22:00 05:35 WBC RBC Hgb Hct MCV MCHC RDW Plt Count MPV Neutrophils % Lymphocytes % Monocytes % Eosinophils % Basophils % PTT (Actin FS) > 400.0 H > 400.0 H 83.7 H D Puncture Site ABG pH ABG pCO2 at Pt Temp ABG pO2 at Pt Temp ABG HCO3 ABG O2 Sat (Measured) ABG O2 Content ABG Base Excess Mor Test O2 Delivery Device Oxygen Flow Rate Vent Mode Vent Rate Mechanical Rate PEEP Pressure Support Vent Sodium Potassium Chloride Carbon Dioxide Anion Gap BUN Creatinine Creat Clearance w eGFR POC Glucometer Random Glucose Lactic Acid Calcium Total Bilirubin AST ALT Alkaline Phosphatase Creatine Kinase Troponin I Total Protein Albumin 07/27/16 07/27/16 07/27/16 12:00 12:00 12:00 WBC 15.0 H RBC 4.31 Hgb 10.8 Hct 34.6 MCV 80.3 MCHC 31.1 L RDW 19.0 H Plt Count 335 MPV 9.3 Neutrophils % 81.4 Lymphocytes % 8.2 D Monocytes % 10.1 Eosinophils % 0.1 Basophils % 0.2 PTT (Actin FS) Puncture Site ABG pH ABG pCO2 at Pt Temp ABG pO2 at Pt Temp ABG HCO3 ABG O2 Sat (Measured) ABG O2 Content ABG Base Excess Mor Test O2 Delivery Device Oxygen Flow Rate Vent Mode Vent Rate Mechanical Rate PEEP Pressure Support Vent Sodium 129 L Potassium 5.9 H Chloride 89 L Carbon Dioxide 21 Anion Gap 19 H BUN 99 H Creatinine 3.1 H Creat Clearance w eGFR 14.57 POC Glucometer Random Glucose 86 D Lactic Acid 7.090 H* Calcium 9.1 Total Bilirubin 1.0 D AST 1253 H ALT 675 H D Alkaline Phosphatase 360 H Creatine Kinase 81 Troponin I 0.55 H Total Protein 7.1 Albumin 2.8 L 07/27/16 07/27/16 13:20 17:25 WBC RBC Hgb Hct MCV MCHC RDW Plt Count MPV Neutrophils % Lymphocytes % Monocytes % Eosinophils % Basophils % PTT (Actin FS) Puncture Site Right radial ABG pH 7.39 ABG pCO2 at Pt Temp 31.8 L ABG pO2 at Pt Temp 281.0 H* D ABG HCO3 18.6 L ABG O2 Sat (Measured) 100.0 H* ABG O2 Content 15.7 ABG Base Excess -5.1 L Mor Test Positive O2 Delivery Device Bipap Oxygen Flow Rate 100% Vent Mode S/t Vent Rate 14 Mechanical Rate Bipap PEEP 0.0 Pressure Support Vent 14/6 Sodium Potassium Chloride Carbon Dioxide Anion Gap BUN Creatinine Creat Clearance w eGFR POC Glucometer 102 Random Glucose Lactic Acid Calcium Total Bilirubin AST ALT Alkaline Phosphatase Creatine Kinase Troponin I Total Protein Albumin plan ck tsh free t4 hb a1c continue synthroid 137mcg daily
[2016-07-27] MEDS ORDERED: CEFEPIME HCL 1 GM VIAL (RESTRICTED TO ID) IVPB SCH (22:00)
[2016-07-27] MEDS: ONDANSETRON 4 MG/2 ML VIAL IVPUSH PRN (23:55)
[2016-07-28] MEDS: PIPERACILLIN/TAZOB 2.25 GM 50 ML IVPB SCH ×3 (01:41→18:51)
[2016-07-28] MEDS: INSULIN SLIDING SCALE (NOVOLOG) 1 VIAL SQ SCH ×4 (06:34→21:39)
[2016-07-28] MEDS ORDERED: LEVOTHYROXINE NA 25 MCG TABLET (FP) ONE (06:35)
[2016-07-28] MEDS ORDERED: LEVOTHYROXINE NA 112 MCG TABLET (FP) ONE (06:36)
[2016-07-28] MEDS: ALBUTEROL SO4 2.5/IPRATROPIUM 0.5 INH SOL 3 ML VIAL.NEB. NEB SCH ×4 (06:40→23:20)
[2016-07-28] MEDS: NITROGLYCERIN 2% OINTMENT - 1GM PACKET TD SCH ×4 (06:44→18:51)
[2016-07-28] MEDS: LEVOTHYROXINE 112 MCG, LEVOTHYROXINE 25 MCG PO SCH (06:44)
[2016-07-28 08:17] LABS: BASOPHIL 0.2 % (0-2.0); MCH 24.8 pg (25.7-33.7); MCHC 31.3 g/dl (32.0-36.0); MEAN CELL VOLUME 79.2 fl (80-96); NEUTROPHILS 79.8 % (42.8-82.8); PLATELET COUNT 309 K/MM3 (134-434); RDW 18.8 % (11.6-15.6); WHITE BLOOD COUNT 12.4 K/mm3 (4.0-10.0)
[2016-07-28 08:43] LABS: ALBUMIN 2.5 g/dl (3.4-5.0); CALCIUM 8.6 mg/dL (8.5-10.1)
[2016-07-28 09:00] LABS: BILIRUBIN,TOTAL 1.1 mg/dL (0.2-1.0); CREATININE 3.5 mg/dL (0.55-1.02); TOT PROT 6.6 g/dl (6.4-8.2)
[2016-07-28 09:25] LABS: THYROID STIMULATING HORMONE 2.1 uIU/ml (0.358-3.74)
[2016-07-28] MEDS: ASPIRIN 81 MG CHEWABLE TABLETS PO SCH (09:29)
[2016-07-28] MEDS: PANTOPRAZOLE 40 MG TABLET (FP) PO SCH (09:29)
[2016-07-28] MEDS: METOPROLOL SUCCINATE 50 MG TAB.SR.24H (FP) PO SCH (09:29)
[2016-07-28 09:31] LABS: TROPONIN I 0.52 ng/ml (0.00-0.05)
[2016-07-28] MEDS ORDERED: ATORVASTATIN CA 20 MG TABLET (FP) PO SCH (10:00)
[2016-07-28] MEDS ORDERED: LEVOTHYROXINE SODIUM 137 MCG PO SCH (10:00)
--- NOTE | 2016-07-28 10:18 | PN ---
Progress Note, Physician History of Present Illness: FEELS BETTER ON BIPAP - Current Medication List Current Medications: Active Medications Albuterol/Ipratropium (Duoneb -) 1 amp NEB QIDR [facility] Last Admin: 07/28/16 06:40 Dose: 1 amp Aspirin (Asa -) 81 mg PO DAILY [facility] Last Admin: 07/28/16 09:29 Dose: 81 mg Heparin Sodium (Porcine) (Heparin -) 1,000 unit IVPUSH PRN PRN PRN Reason: Heparin Heparin Sodium (Porcine) (Heparin -) 5,000 unit IVPUSH PRN PRN PRN Reason: Heparin Heparin Sodium (Porcine) 25, (000 unit/ Sodium Chloride) 500 mls @ 20 mls/hr IV TITR THEE; 1,000 UNIT/HR PRN Reason: Protocol Last Admin: 07/27/16 17:40 Dose: 13 mls/hr Piperacillin Sod/Tazobactam Sod (Zosyn 2.25gm Ivpb (Pre-Docked)) 50 mls @ 100 mls/hr IVPB Q8H-IV [facility] Last Admin: 07/28/16 09:29 Dose: 100 mls/hr Insulin Aspart (Novolog Vial Sliding Scale -) 1 vial SQ ACHS [facility] PRN Reason: Protocol Last Admin: 07/28/16 06:34 Dose: Not Given Levothyroxine Sodium 112 mcg/ (Levothyroxine Sodium 25 mcg) 137 mcg PO DAILY@ 0700 [facility] Last Admin: 07/28/16 06:44 Dose: 137 mcg Metoprolol Succinate (Toprol Xl -) 50 mg PO DAILY [facility] Last Admin: 07/28/16 09:29 Dose: 50 mg Nitroglycerin (Nitro-Bid 2% Paste -) 0.5 inch TD Q6HPO [facility] Last Admin: 07/28/16 06:44 Dose: 0.5 inch Ondansetron HCl (Zofran Injection) 4 mg IVPUSH Q8H PRN PRN Reason: NAUSEA AND/OR VOMITING Last Admin: 07/27/16 23:55 Dose: 4 mg Pantoprazole Sodium (Protonix -) 40 mg PO DAILY [facility] Last Admin: 07/28/16 09:29 Dose: 40 mg - Objective Vital Signs: Vital Signs Temperature 97.2 F L 07/28/16 09:24 Pulse Rate 62 07/28/16 09:24 Respiratory Rate 22 07/28/16 09:24 Blood Pressure 128/65 07/28/16 09:24 O2 Sat by Pulse Oximetry (%) 99 07/28/16 06:40 Cardiovascular: Yes: Regular Rate and Rhythm Respiratory: Yes: Regular, CTA Bilaterally Gastrointestinal: Yes: Normal Bowel Sounds, Soft Labs: CBC, BMP 07/28/16 07:50 07/28/16 07:50 Problem List - Problems (1) Pneumonia Assessment/Plan: IV ABX ID CONSULT F/U CXR Code(s): J18.9 - PNEUMONIA, UNSPECIFIED ORGANISM Qualifiers: Pneumonia type: due to unspecified organism Laterality: right Lung location: unspecified part of lung Qualified Code(s): J18.9 - Pneumonia, unspecified organism (2) Acute hypercapnic respiratory failure Assessment/Plan: BIPAP NEBS PULM CONSULT Code(s): J96.02 - ACUTE RESPIRATORY FAILURE WITH HYPERCAPNIA (3) Acute on chronic systolic (congestive) heart failure Assessment/Plan: MONITOR AND PRN LASIX Code(s): I50.23 - ACUTE ON CHRONIC SYSTOLIC (CONGESTIVE) HEART FAILURE (4) DM2 (diabetes mellitus, type 2) Assessment/Plan: BGM ENDO Code(s): E11.9 - TYPE 2 DIABETES MELLITUS WITHOUT COMPLICATIONS (5) Sepsis Assessment/Plan: IV ABX CULTURES ID Code(s): A41.9 - SEPSIS, UNSPECIFIED ORGANISM (6) ARF (acute renal failure) Assessment/Plan: REPEAT LABS NOTED--CXR--MAY NEED FLUIDS RENAL Code(s): N17.9 - ACUTE KIDNEY FAILURE, UNSPECIFIED Qualifiers: Acute renal failure type: unspecified Qualified Code(s): N17.9 - Acute kidney failure, unspecified (7) Transaminitis Assessment/Plan: FOLLOW LABS US GI Code(s): R74.0 - NONSPEC ELEV OF LEVELS OF TRANSAMNS & LACTIC ACID DEHYDRGNSE
--- NOTE | 2016-07-28 11:29 | PN ---
Progress Note, Physician Chief Complaint: No events Remains on BiPAP No chest pain or dyspnea - Current Medication List Current Medications: Active Medications Albuterol/Ipratropium (Duoneb -) 1 amp NEB QIDR [facility] Last Admin: 07/28/16 06:40 Dose: 1 amp Aspirin (Asa -) 81 mg PO DAILY [facility] Last Admin: 07/28/16 09:29 Dose: 81 mg Heparin Sodium (Porcine) (Heparin -) 1,000 unit IVPUSH PRN PRN PRN Reason: Heparin Heparin Sodium (Porcine) (Heparin -) 5,000 unit IVPUSH PRN PRN PRN Reason: Heparin Heparin Sodium (Porcine) 25, (000 unit/ Sodium Chloride) 500 mls @ 20 mls/hr IV TITR THEE; 1,000 UNIT/HR PRN Reason: Protocol Last Admin: 07/27/16 17:40 Dose: 13 mls/hr Piperacillin Sod/Tazobactam Sod (Zosyn 2.25gm Ivpb (Pre-Docked)) 50 mls @ 100 mls/hr IVPB Q8H-IV [facility] Last Admin: 07/28/16 09:29 Dose: 100 mls/hr Insulin Aspart (Novolog Vial Sliding Scale -) 1 vial SQ ACHS [facility] PRN Reason: Protocol Last Admin: 07/28/16 11:22 Dose: Not Given Levothyroxine Sodium 112 mcg/ (Levothyroxine Sodium 25 mcg) 137 mcg PO DAILY@ 0700 [facility] Last Admin: 07/28/16 06:44 Dose: 137 mcg Metoprolol Succinate (Toprol Xl -) 50 mg PO DAILY [facility] Last Admin: 07/28/16 09:29 Dose: 50 mg Nitroglycerin (Nitro-Bid 2% Paste -) 0.5 inch TD Q6HPO [facility] Last Admin: 07/28/16 11:26 Dose: 0.5 inch Ondansetron HCl (Zofran Injection) 4 mg IVPUSH Q8H PRN PRN Reason: NAUSEA AND/OR VOMITING Last Admin: 07/27/16 23:55 Dose: 4 mg Pantoprazole Sodium (Protonix -) 40 mg PO DAILY [facility] Last Admin: 07/28/16 09:29 Dose: 40 mg - Objective Vital Signs: Vital Signs Temperature 97.2 F L 07/28/16 09:24 Pulse Rate 62 01/15/17 09:24 Respiratory Rate 22 07/28/16 09:24 Blood Pressure 128/65 07/28/16 09:24 O2 Sat by Pulse Oximetry (%) 99 07/28/16 06:40 Constitutional: Yes: Mild Distress (on BiPAP) Eyes: Yes: WNL HENT: Yes: WNL Neck: Yes: WNL Cardiovascular: Yes: Regular Rate and Rhythm, Murmur Respiratory: Yes: Regular, CTA Bilaterally Gastrointestinal: Yes: WNL Edema: Yes Edema: LLE: 2+, RLE: 2+ Labs: CBC, BMP 07/28/16 07:50 07/28/16 07:50 Assessment/Plan 1) (+) troponin -Likely demand related -Trending down -Continue asa and on IV UFH -DC statin given LFTs -OK to contiunue BB if BP tolerates 2) CHF -Likely related to onoing pulmonary infection (?pneumonia) -Has CMY from last admission -Was treated with Torsemide -Would start Lasix 80mg BID (elevated Cr) 3) Pneumonia -Treatment as per primary team
--- NOTE | 2016-07-28 12:04 | PN ---
Progress Note (short form) - Note Progress Note: PULMONARY ASKING FOR WATER REMAINS ON PAP ABG NOTED VSS/AFEBRILE PALE SCATTERED RHONCHI/DIMINISHED BREATH SOUNDS RIGHT BASE S1S2 BS+ 2+EDEMA LOWER EXT LABS/MEDS/NOTES/IMAGING/MICRO/ REVIEWED ACUTE ON CHRONIC RESP FAILURE/O2 DEPENDANT NOW ON BIPAP LIKELY RIGHT LOWER LOBE INFILTRATE/PNEUMONIA?POST INFLUENZA BNP/LFT'S/TROPONIN/LACTIC ACID ELEVATED CHECK PANCULTURE/CONTINUE BIPAP/ START ANTIBIOTICS/?CONTINUE TAMIFLU/CHECK NASAL SWAB CARDIO EVAL/CYCLE TROPS/SERIAL EKG'S CONTINUE TELE MONITORING Hawa LOYA MD Problem List - Problems (1) CHF (congestive heart failure) Code(s): I50.9 - HEART FAILURE, UNSPECIFIED Qualifiers: Congestive heart failure type: unspecified congestive heart failure type Congestive heart failure chronicity: acute on chronic Qualified Code(s ): I50.9 - Heart failure, unspecified (2) Pneumonia Code(s): J18.9 - PNEUMONIA, UNSPECIFIED ORGANISM Qualifiers: Pneumonia type: due to unspecified organism Laterality: right Lung location: unspecified part of lung Qualified Code(s): J18.9 - Pneumonia, unspecified organism (3) Transaminitis Code(s): R74.0 - NONSPEC ELEV OF LEVELS OF TRANSAMNS & LACTIC ACID DEHYDRGNSE (4) Acute hypercapnic respiratory failure Code(s): J96.02 - ACUTE RESPIRATORY FAILURE WITH HYPERCAPNIA (5) Acute on chronic systolic (congestive) heart failure Code(s): I50.23 - ACUTE ON CHRONIC SYSTOLIC (CONGESTIVE) HEART FAILURE (6) CAD (coronary artery disease) Code(s): I25.10 - ATHSCL HEART DISEASE OF [place] CORONARY ARTERY W/O ANG PCTRS
--- NOTE | 2016-07-28 13:45 | CONSULT ---
Consult Consult Specialty:: GI Referred by:: Dr Mata Reason for Consultation:: increased LFTs - History of Present Illness Chief Complaint: Dyspnea History of Present Illness: 75 F With h/o HTN, HLD, CAD s/p CABG, CHF, PVD, COPD, Sent from [place] with dyspnea. Called to evaluate increased LFTs. Patient noted to have normal LFT's and a normal BUN and Cr in early April,. She is currently on BIPAP. Lactic acid 7.0 earlier today and BNP 50,000. - History Source History Provided By: Medical Record Limitations to Obtaining History: Clinical Condition - Past Medical History Cardio/Vascular: Yes: CAD, CHF, HTN, Hyperlipdemia. No: AFIB Pulmonary: Yes: COPD. No: O2 Dependent ENT: Yes: Allergic Rhinitis Endocrine: Yes: Hypothyroidism. No: Fannie's Disease - Past Surgical History Past Surgical History: Yes: CABG, Carotid Endarterectomy (BILATERAL WITH REVISION OF BILATERAL CAROTIDS ), Colostomy, Vein Stripping/Ligation - Alcohol/Substance Use Hx Alcohol Use: No History of Substance Use: reports: None - Smoking History Smoking history: Former smoker Have you smoked in the past 12 months: No Aproximately how many cigarettes per day: 0 If you are a former smoker, when did you quit?: 1994 - Social History History of Recent Travel: No Home Medications - Allergies Allergies/Adverse Reactions: Allergies Allergy/AdvReac Type Severity Reaction Status Date / Time No Known Drug Allergies Allergy Verified 07/26/16 12:55 - Home Medications Home Medications: Ambulatory Orders Acidoph/L.bulg/Bif.b/S.thermop [Siomara-Bid Caplet] 1 each PO BID 07/26/16 Albuterol 2.5/Ipratropium 0.5 [Duoneb -] 1 neb IH QID 07/26/16 Ascorbic Acid [Vitamin C -] 1,000 mg PO DAILY 07/26/16 Aspirin [ASA -] 81 mg PO DAILY 07/26/16 Atorvastatin Calcium 20 mg PO DAILY 07/26/16 Calcium Carbonate [Oyster Shell Calcium] 500 mg PO BID 07/26/16 Enalapril Maleate [Vasotec -] 5 mg PO BID 07/26/16 Levothyroxine Sodium [Levo-T] 137 mcg PO DAILY 07/26/16 Metoprolol Succinate [Toprol Xl -] 50 mg PO DAILY 07/26/16 Multivitamins [Tab-A-Vit -] 1 tab PO DAILY 07/26/16 Naph,Mb-Db/K pH,Mbdb [PHOS-NaK PACKET -] 1 packet GT BID 07/26/16 Pantoprazole Sodium [Protonix -] 40 mg PO DAILY 07/26/16 Pilocarpine HCl [Isopto Carpine] 2 drop OP PRN 07/26/16 Torsemide [Demadex] 40 mg PO DAILY 07/26/16 Tramadol HCl [Ultram] 50 mg PO Q6H 07/26/16 Physical Exam-GI Vital Signs: Vital Signs Temperature 97.2 F L 07/28/16 09:24 Pulse Rate 62 07/28/16 09:24 Respiratory Rate 22 07/28/16 09:24 Blood Pressure 128/65 07/28/16 09:24 O2 Sat by Pulse Oximetry (%) 99 07/28/16 06:40 Constitutional: Yes: Well Nourished, Moderate Distress HENT: Yes: Normocephalic Neck: Yes: Supple Cardiovascular: Yes: Regular Rate and Rhythm Respiratory: Yes: CTA Bilaterally Gastrointestinal Inspection: Yes: WNL ...Auscultate: Yes: Normoactive Bowel Sounds ...Palpate: Yes: Soft, Tenderness (RLQ) ...Percussion: Yes: Dullness Labs: CBC, BMP 07/28/16 07:50 07/28/16 07:50 Hepatic Panel Total Bilirubin 1.1 mg/dL (0.2-1.0) H 07/28/16 07:50 AST 1113 U/L (15-37) H 07/28/16 07:50 ALT 692 U/L (12-78) H 07/28/16 07:50 Alkaline Phosphatase 336 U/L (45-117) H 07/28/16 07:50 Albumin 2.5 g/dl (3.4-5.0) L 07/28/16 07:50 Assessment/Plan 75 M with above history admitted with dyspnea and found to have PNA. New marked transamanitis with normal U/S and BNP of 50,000 suggest R heart failure with hepatic congestion, probably exacerbated by ischemia secondary to hypotension/low flow state. As renal deterioration mirrors the hepatic picture, probably same etiology. Expect resolution once the underlying problem is corrected. Follow LFTs. Spoke with family member.
--- NOTE | 2016-07-28 14:26 | PN ---
Progress Note, Physician History of Present Illness: Awake, alert Dyspneic on bipap Afebrile WBC improved - Current Medication List Current Medications: Active Medications Albuterol/Ipratropium (Duoneb -) 1 amp NEB QIDR [facility] Last Admin: 07/28/16 12:47 Dose: 1 amp Aspirin (Asa -) 81 mg PO DAILY [facility] Last Admin: 07/28/16 09:29 Dose: 81 mg Heparin Sodium (Porcine) (Heparin -) 1,000 unit IVPUSH PRN PRN PRN Reason: Heparin Heparin Sodium (Porcine) (Heparin -) 5,000 unit IVPUSH PRN PRN PRN Reason: Heparin Heparin Sodium (Porcine) 25, (000 unit/ Sodium Chloride) 500 mls @ 20 mls/hr IV TITR THEE; 1,000 UNIT/HR PRN Reason: Protocol Last Admin: 07/27/16 17:40 Dose: 13 mls/hr Piperacillin Sod/Tazobactam Sod (Zosyn 2.25gm Ivpb (Pre-Docked)) 50 mls @ 100 mls/hr IVPB Q8H-IV [facility] Last Admin: 07/28/16 09:29 Dose: 100 mls/hr Insulin Aspart (Novolog Vial Sliding Scale -) 1 vial SQ ACHS [facility] PRN Reason: Protocol Last Admin: 07/28/16 11:22 Dose: Not Given Levothyroxine Sodium 112 mcg/ (Levothyroxine Sodium 25 mcg) 137 mcg PO DAILY@ 0700 [facility] Last Admin: 07/28/16 06:44 Dose: 137 mcg Metoprolol Succinate (Toprol Xl -) 50 mg PO DAILY [facility] Last Admin: 07/28/16 09:29 Dose: 50 mg Nitroglycerin (Nitro-Bid 2% Paste -) 0.5 inch TD Q6HPO [facility] Last Admin: 07/28/16 11:26 Dose: 0.5 inch Ondansetron HCl (Zofran Injection) 4 mg IVPUSH Q8H PRN PRN Reason: NAUSEA AND/OR VOMITING Last Admin: 07/27/16 23:55 Dose: 4 mg Pantoprazole Sodium (Protonix -) 40 mg PO DAILY [facility] Last Admin: 07/28/16 09:29 Dose: 40 mg - Objective Vital Signs: Vital Signs Temperature 97.2 F L 07/28/16 09:24 Pulse Rate 62 07/28/16 09:24 Respiratory Rate 22 07/28/16 09:24 Blood Pressure 128/65 07/28/16 09:24 O2 Sat by Pulse Oximetry (%) 98 07/28/16 10:48 Constitutional: Yes: Obese Eyes: Yes: Conjunctiva Clear Cardiovascular: Yes: Regular Rate and Rhythm, S1, S2 Respiratory: Yes: Diminished Gastrointestinal: Yes: Normal Bowel Sounds, Soft. No: Tenderness Edema: Yes Labs: CBC, BMP 07/28/16 07:50 07/28/16 07:50 Assessment/Plan Possible HCAP RLL/ sepsis secondary to pneumonia CHF leukocytosis-improved Azotemia Elevated LFTs Continue empiric zosyn
--- NOTE | 2016-07-28 16:07 | CONSULT ---
Consult Consult Specialty:: Nephrology Reason for Consultation:: JEANIE - History of Present Illness Chief Complaint: sent from [place] for cough and worsening SOB History of Present Illness: Pt is a 75 year old female with hx of HTN, chol, CAD, CABG, COPD and CHF who was sent in from the [place] for worsening shortness of breath. She has also had increased lower extremity edema. She was found to be in renal failure and I was called to evaluate her. She denies history of kidney disease. She complains of shortness of breath and requires bipap. She denies fevers or chills. She denies nsaid use. She was also found to have a lactic acidosis. - History Source History Provided By: Patient, Medical Record - Past Medical History Cardio/Vascular: Yes: CAD, CHF, HTN, Hyperlipdemia Pulmonary: Yes: COPD ENT: Yes: Allergic Rhinitis Endocrine: Yes: Hypothyroidism - Past Surgical History Past Surgical History: Yes: CABG, Carotid Endarterectomy (BILATERAL WITH REVISION OF BILATERAL CAROTIDS ), Colostomy, Vein Stripping/Ligation - Alcohol/Substance Use Hx Alcohol Use: No History of Substance Use: reports: None - Smoking History Smoking history: Former smoker Have you smoked in the past 12 months: No Aproximately how many cigarettes per day: 0 If you are a former smoker, when did you quit?: 1994 - Social History History of Recent Travel: No Home Medications - Allergies Allergies/Adverse Reactions: Allergies Allergy/AdvReac Type Severity Reaction Status Date / Time No Known Drug Allergies Allergy Verified 07/26/16 12:55 - Home Medications Home Medications: Ambulatory Orders Acidoph/L.bulg/Bif.b/S.thermop [Siomara-Bid Caplet] 1 each PO BID 07/26/16 Albuterol 2.5/Ipratropium 0.5 [Duoneb -] 1 neb IH QID 07/26/16 Ascorbic Acid [Vitamin C -] 1,000 mg PO DAILY 07/26/16 Aspirin [ASA -] 81 mg PO DAILY 07/26/16 Atorvastatin Calcium 20 mg PO DAILY 07/26/16 Calcium Carbonate [Oyster Shell Calcium] 500 mg PO BID 07/26/16 Enalapril Maleate [Vasotec -] 5 mg PO BID 07/26/16 Levothyroxine Sodium [Levo-T] 137 mcg PO DAILY 07/26/16 Metoprolol Succinate [Toprol Xl -] 50 mg PO DAILY 07/26/16 Multivitamins [Tab-A-Vit -] 1 tab PO DAILY 07/26/16 Naph,Mb-Db/K pH,Mbdb [PHOS-NaK PACKET -] 1 packet GT BID 07/26/16 Pantoprazole Sodium [Protonix -] 40 mg PO DAILY 07/26/16 Pilocarpine HCl [Isopto Carpine] 2 drop OP PRN 07/26/16 Torsemide [Demadex] 40 mg PO DAILY 07/26/16 Tramadol HCl [Ultram] 50 mg PO Q6H 07/26/16 Family Disease History - Family Disease History Family History: Denies Review of Systems - Review of Systems Constitutional: reports: Malaise Eyes: reports: No Symptoms HENT: reports: No Symptoms Neck: reports: No Symptoms Cardiovascular: reports: Edema, Shortness of Breath Respiratory: reports: Cough, SOB, SOB on Exertion Genitourinary: reports: No Symptoms Musculoskeletal: reports: No Symptoms Integumentary: reports: No Symptoms Neurological: reports: No Symptoms Endocrine: reports: No Symptoms Hematology/Lymphatic: reports: No Symptoms Psychiatric: reports: No Symptoms Physical Exam Vital Signs: Vital Signs Temperature 97.2 F L 07/28/16 09:24 Pulse Rate 60 07/28/16 14:00 Respiratory Rate 20 07/28/16 14:00 Blood Pressure 114/59 07/28/16 14:00 O2 Sat by Pulse Oximetry (%) 98 07/28/16 15:00 Constitutional: Yes: Calm Eyes: Yes: Conjunctiva Clear Cardiovascular: Yes: S1, S2 Respiratory: Yes: On BiPap Gastrointestinal: Yes: Soft, Abdomen, Obese Renal/: Yes: [place] Present Musculoskeletal: Yes: Muscle Weakness Edema: Yes Edema: LLE: Trace, RLE: Trace Integumentary: Yes: WNL Neurological: Yes: Oriented Psychiatric: Yes: Oriented Labs: CBC, BMP 07/28/16 07:50 07/28/16 07:50 Laboratory Tests 04/13/16 04/16/16 04/17/16 08:45 05:35 06:00 WBC Hgb Puncture Site ABG pH ABG pCO2 at Pt Temp ABG pO2 at Pt Temp ABG HCO3 ABG O2 Sat (Measured) Sodium Potassium Chloride Carbon Dioxide Anion Gap BUN Creatinine 0.7 0.7 0.9 D Creat Clearance w eGFR Hemoglobin A1c % Lactic Acid AST ALT B-Natriuretic Peptide TSH Urine Color Urine Appearance Urine pH Ur Specific Mitchell Urine Protein Urine Glucose (UA) Urine Ketones Urine Blood Urine Nitrite Urine Bilirubin Urine Urobilinogen Ur Leukocyte Esterase Random Vancomycin 04/18/16 07/26/16 07/26/16 05:48 13:37 13:37 WBC 11.9 H D Hgb Puncture Site ABG pH ABG pCO2 at Pt Temp ABG pO2 at Pt Temp ABG HCO3 ABG O2 Sat (Measured) Sodium 129 L Potassium 5.5 H D Chloride Carbon Dioxide Anion Gap BUN Creatinine 0.9 2.9 H D Creat Clearance w eGFR Hemoglobin A1c % Lactic Acid AST ALT B-Natriuretic Peptide TSH Urine Color Urine Appearance Urine pH Ur Specific Mitchell Urine Protein Urine Glucose (UA) Urine Ketones Urine Blood Urine Nitrite Urine Bilirubin Urine Urobilinogen Ur Leukocyte Esterase Random Vancomycin 07/26/16 07/27/16 07/27/16 15:28 12:00 12:00 WBC 15.0 H Hgb 10.8 Puncture Site ABG pH ABG pCO2 at Pt Temp ABG pO2 at Pt Temp ABG HCO3 ABG O2 Sat (Measured) Sodium 129 L Potassium Chloride Carbon Dioxide Anion Gap BUN 99 H Creatinine 3.1 H Creat Clearance w eGFR Hemoglobin A1c % Lactic Acid AST ALT B-Natriuretic Peptide TSH Urine Color Yellow Urine Appearance Clear Urine pH 5.0 D Ur Specific Mitchell 1.012 Urine Protein Negative Urine Glucose (UA) Negative Urine Ketones Negative Urine Blood Negative Urine Nitrite Negative Urine Bilirubin Negative Urine Urobilinogen Negative Ur Leukocyte Esterase Negative Random Vancomycin 07/27/16 07/27/16 07/28/16 12:00 13:20 07:50 WBC 12.4 H Hgb 10.6 L Puncture Site Right radial ABG pH 7.39 ABG pCO2 at Pt Temp 31.8 L ABG pO2 at Pt Temp 281.0 H* D ABG HCO3 18.6 L ABG O2 Sat (Measured) 100.0 H* Sodium Potassium Chloride Carbon Dioxide Anion Gap BUN Creatinine Creat Clearance w eGFR Hemoglobin A1c % Lactic Acid 7.090 H* AST ALT B-Natriuretic Peptide TSH Urine Color Urine Appearance Urine pH Ur Specific Mitchell Urine Protein Urine Glucose (UA) Urine Ketones Urine Blood Urine Nitrite Urine Bilirubin Urine Urobilinogen Ur Leukocyte Esterase Random Vancomycin 07/28/16 07/28/16 07/28/16 07:50 07:50 07:50 WBC Hgb Puncture Site ABG pH ABG pCO2 at Pt Temp ABG pO2 at Pt Temp ABG HCO3 ABG O2 Sat (Measured) Sodium 132 L Potassium 5.0 Chloride 90 L Carbon Dioxide 22 Anion Gap 20 H BUN 111 H* Creatinine 3.5 H Creat Clearance w eGFR 12.67 Hemoglobin A1c % 7.0 H D Lactic Acid AST 1113 H ALT 692 H B-Natriuretic Peptide 57359.51 H TSH 2.10 D Urine Color Urine Appearance Urine pH Ur Specific Mitchell Urine Protein Urine Glucose (UA) Urine Ketones Urine Blood Urine Nitrite Urine Bilirubin Urine Urobilinogen Ur Leukocyte Esterase Random Vancomycin 15.286 Imaging - Results Chest X-ray: Report Reviewed Ultrasound: Report Reviewed (kidneys appear normal) Problem List - Problems (1) ARF (acute renal failure) Code(s): N17.9 - ACUTE KIDNEY FAILURE, UNSPECIFIED Qualifiers: Acute renal failure type: unspecified Qualified Code(s): N17.9 - Acute kidney failure, unspecified (2) CHF (congestive heart failure) Code(s): I50.9 - HEART FAILURE, UNSPECIFIED Qualifiers: Congestive heart failure type: unspecified congestive heart failure type Congestive heart failure chronicity: acute on chronic Qualified Code(s ): I50.9 - Heart failure, unspecified (3) Pneumonia Code(s): J18.9 - PNEUMONIA, UNSPECIFIED ORGANISM Qualifiers: Pneumonia type: due to unspecified organism Laterality: right Lung location: unspecified part of lung Qualified Code(s): J18.9 - Pneumonia, unspecified organism (4) Transaminitis Code(s): R74.0 - NONSPEC ELEV OF LEVELS OF TRANSAMNS & LACTIC ACID DEHYDRGNSE (5) Acute hypercapnic respiratory failure Code(s): J96.02 - ACUTE RESPIRATORY FAILURE WITH HYPERCAPNIA (6) CAD (coronary artery disease) Code(s): I25.10 - ATHSCL HEART DISEASE OF [place] CORONARY ARTERY W/O ANG PCTRS (7) DM2 (diabetes mellitus, type 2) Code(s): E11.9 - TYPE 2 DIABETES MELLITUS WITHOUT COMPLICATIONS (8) GERD (gastroesophageal reflux disease) Code(s): K21.9 - GASTRO-ESOPHAGEAL REFLUX DISEASE WITHOUT ESOPHAGITIS (9) HTN (hypertension) Code(s): I10 - ESSENTIAL (PRIMARY) HYPERTENSION Assessment/Plan Current Medications Generic Name Dose Route Start Last Admin Trade Name Freq PRN Reason Stop Dose Admin Albuterol/Ipratropium 1 amp 07/27/16 12:00 07/28/16 17:45 Duoneb - NEB 1 amp QIDR THEE Administration Aspirin 81 mg 07/28/16 10:00 07/28/16 09:29 Asa - PO 81 mg DAILY THEE Administration Heparin Sodium (Porcine) 1,000 unit 07/26/16 16:04 Heparin - IVPUSH PRN PRN Heparin Heparin Sodium (Porcine) 5,000 unit 07/26/16 16:04 Heparin - IVPUSH PRN PRN Heparin Heparin Sodium (Porcine) 25, 500 mls @ 20 mls/hr 07/26/16 16:15 07/27/16 17:40 000 unit/ Sodium Chloride IV 13 mls/hr TITR THEE Administration Protocol 1,000 UNIT/HR Piperacillin Sod/Tazobactam Sod 50 mls @ 100 mls/hr 07/27/16 12:45 07/28/16 18: 51 Zosyn 2.25gm Ivpb (Pre-Docked) IVPB 100 mls/hr Q8H-IV THEE Administration Insulin Aspart 1 vial 07/27/16 16:30 07/28/16 11:22 Novolog Vial Sliding Scale - SQ Not Given ACHS [facility] Protocol Levothyroxine Sodium 112 mcg/ 137 mcg 07/28/16 07:00 07/28/16 06:44 Levothyroxine Sodium 25 mcg PO 137 mcg DAILY@0700 THEE Administration Metoprolol Succinate 50 mg 07/28/16 10:00 07/28/16 09:29 Toprol Xl - PO 50 mg DAILY THEE Administration Nitroglycerin 0.5 inch 07/26/16 18:00 07/28/16 18:51 Nitro-Bid 2% Paste - TD 0.5 inch Q6HPO THEE Administration Ondansetron HCl 4 mg 07/27/16 09:11 07/27/16 23:55 Zofran Injection IVPUSH 4 mg Q8H PRN Administration NAUSEA AND/OR VOMITING Pantoprazole Sodium 40 mg 07/28/16 10:00 07/28/16 09:29 Protonix - PO 40 mg DAILY THEE Administration Impression 1. JEANIE 2. hyperkalemia 3. CHF 4. resp failure requiring bipap 5. HTN 6. PNA 7. COPD 8. hyponatremia 9. trasnaminitis 10. 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
[2016-07-28] MEDS ORDERED: FUROSEMIDE 40 MG/4 ML INJECTABLE VIAL IVPUSH ONE (19:06)
[2016-07-28] MEDS: HEPARIN - 25,000 UNIT in SODIUM CHLORIDE 495 ML IV SCH (20:35)
[2016-07-28 22:49] LABS: CHLORIDE,RANDOM URINE < 10 MMOL/L; SODIUM,RANDOM URINE 9 MMOL/L
[2016-07-28 22:50] LABS: URINE CREATININE 61.1 mg/dL
--- NOTE | 2016-07-29 00:14 | PN ---
Progress Note, Physician Chief Complaint: shortness of breath and weakness History of Present Illness: 75 year old female with hx of HTN, chol, CAD, CABG, COPD and CHF who was sent in from the [place] for worsening shortness of breath. She has also had increased lower extremity edema. has recent worsening of renal function,difficulty breathing cough and congestion. - Current Medication List Current Medications: Active Medications Albuterol/Ipratropium (Duoneb -) 1 amp NEB QIDR [facility] Last Admin: 07/28/16 23:20 Dose: 1 amp Aspirin (Asa -) 81 mg PO DAILY [facility] Last Admin: 07/28/16 09:29 Dose: 81 mg Heparin Sodium (Porcine) (Heparin -) 1,000 unit IVPUSH PRN PRN PRN Reason: Heparin Heparin Sodium (Porcine) (Heparin -) 5,000 unit IVPUSH PRN PRN PRN Reason: Heparin Last Admin: 07/28/16 20:35 Dose: 5,000 unit Heparin Sodium (Porcine) 25, (000 unit/ Sodium Chloride) 500 mls @ 20 mls/hr IV TITR THEE; 1,000 UNIT/HR PRN Reason: Protocol Last Admin: 07/28/16 20:35 Dose: 10 mls/hr Piperacillin Sod/Tazobactam Sod (Zosyn 2.25gm Ivpb (Pre-Docked)) 50 mls @ 100 mls/hr IVPB Q8H-IV [facility] Last Admin: 07/28/16 18:51 Dose: 100 mls/hr Insulin Aspart (Novolog Vial Sliding Scale -) 1 vial SQ ACHS THEE PRN Reason: Protocol Last Admin: 07/28/16 21:39 Dose: Not Given Levothyroxine Sodium 112 mcg/ (Levothyroxine Sodium 25 mcg) 137 mcg PO DAILY@ 0700 [facility] Last Admin: 07/28/16 06:44 Dose: 137 mcg Metoprolol Succinate (Toprol Xl -) 50 mg PO DAILY [facility] Last Admin: 07/28/16 09:29 Dose: 50 mg Nitroglycerin (Nitro-Bid 2% Paste -) 0.5 inch TD Q6HPO [facility] Last Admin: 07/28/16 18:51 Dose: 0.5 inch Ondansetron HCl (Zofran Injection) 4 mg IVPUSH Q8H PRN PRN Reason: NAUSEA AND/OR VOMITING Last Admin: 07/27/16 23:55 Dose: 4 mg Pantoprazole Sodium (Protonix -) 40 mg PO DAILY THEE Last Admin: 07/28/16 09:29 Dose: 40 mg - Objective Vital Signs: Vital Signs Temperature 97.4 F L 07/28/16 18:00 Pulse Rate 62 07/28/16 22:00 Respiratory Rate 18 07/28/16 22:00 Blood Pressure 102/56 07/28/16 22:00 O2 Sat by Pulse Oximetry (%) 99 07/28/16 22:10 Constitutional: Yes: Mild Distress Eyes: Yes: EOM Intact HENT: Yes: Normocephalic Neck: Yes: Trachea Midline, Thyromegaly Cardiovascular: Yes: Tachycardia, Murmur Respiratory: Yes: Rales, Tachypnea Gastrointestinal: Yes: Normal Bowel Sounds ...Rectal Exam: Yes: Deferred Genitourinary: Yes: WNL Breast(s): Yes: WNL Musculoskeletal: Yes: Back Pain, Muscle Weakness Extremities: Yes: Cool Edema: LLE: 2+, RLE: 2+ Neurological: Yes: Alert, Oriented Labs: CBC, BMP 07/28/16 07:50 07/28/16 07:50 Problem List - Problems (2) CHF (congestive heart failure) Code(s): I50.9 - HEART FAILURE, UNSPECIFIED Qualifiers: Congestive heart failure type: unspecified congestive heart failure type Congestive heart failure chronicity: acute on chronic Qualified Code(s ): I50.9 - Heart failure, unspecified (3) Acute hypercapnic respiratory failure Code(s): J96.02 - ACUTE RESPIRATORY FAILURE WITH HYPERCAPNIA (4) Hyponatremia Code(s): E87.1 - HYPO-OSMOLALITY AND HYPONATREMIA (5) Hypothyroid Code(s): E03.9 - HYPOTHYROIDISM, UNSPECIFIED Assessment/Plan Current Active Problems ARF (acute renal failure) (Acute) CHF (congestive heart failure) (Acute) Pneumonia (Acute) The administrative codes within the [employer] content you are accessing may have as of 04/13/2016. Please contact your IT Dept/Help Desk and request the latest Regulatory release be installed. IT Dept/Help Desk- Please refer to our FAQ page ([email or web address] or contact [employer] Customer Support at [email or web address] (Acute) Transaminitis (Acute) hypothyroidism simona thyroid disease Abnormal Lab Results 07/28/16 07/28/16 07/28/16 07:50 07:50 07:50 WBC 12.4 H Hgb 10.6 L MCV 79.2 L MCHC 31.3 L RDW 18.8 H Monocytes % 10.8 H PTT (Actin FS) > 400.0 H Sodium 132 L Chloride 90 L Anion Gap 20 H BUN 111 H* Creatinine 3.5 H Random Glucose 107 H D Hemoglobin A1c % Total Bilirubin 1.1 H AST 1113 H ALT 692 H Alkaline Phosphatase 336 H Troponin I 0.52 H B-Natriuretic Peptide 89116.51 H Albumin 2.5 L 07/28/16 07/28/16 07/28/16 07:50 11:49 19:30 WBC Hgb MCV MCHC RDW Monocytes % PTT (Actin FS) > 400.0 H 39.3 H D Sodium Chloride Anion Gap BUN Creatinine Random Glucose Hemoglobin A1c % 7.0 H D Total Bilirubin AST ALT Alkaline Phosphatase Troponin I B-Natriuretic Peptide Albumin Current Medications Generic Name Dose Route Start Last Admin Trade Name Freq PRN Reason Stop Dose Admin Albuterol/Ipratropium 1 amp 07/27/16 12:00 07/28/16 23:20 Duoneb - NEB 1 amp QIDR THEE Administration Aspirin 81 mg 07/28/16 10:00 07/28/16 09:29 Asa - PO 81 mg DAILY THEE Administration Heparin Sodium (Porcine) 1,000 unit 07/26/16 16:04 Heparin - IVPUSH PRN PRN Heparin Heparin Sodium (Porcine) 5,000 unit 07/26/16 16:04 07/28/16 20:35 Heparin - IVPUSH 5,000 unit PRN PRN Administration Heparin Heparin Sodium (Porcine) 25, 500 mls @ 20 mls/hr 07/26/16 16:15 07/28/16 20:35 000 unit/ Sodium Chloride IV 10 mls/hr TITR THEE Administration Protocol 1,000 UNIT/HR Piperacillin Sod/Tazobactam Sod 50 mls @ 100 mls/hr 07/27/16 12:45 07/28/16 18: 51 Zosyn 2.25gm Ivpb (Pre-Docked) IVPB 100 mls/hr Q8H-IV THEE Administration Insulin Aspart 1 vial 07/27/16 16:30 07/28/16 21:39 Novolog Vial Sliding Scale - SQ Not Given ACHS [facility] Protocol Levothyroxine Sodium 112 mcg/ 137 mcg 07/28/16 07:00 07/28/16 06:44 Levothyroxine Sodium 25 mcg PO 137 mcg DAILY@0700 THEE Administration Metoprolol Succinate 50 mg 07/28/16 10:00 07/28/16 09:29 Toprol Xl - PO 50 mg DAILY THEE Administration Nitroglycerin 0.5 inch 07/26/16 18:00 07/28/16 18:51 Nitro-Bid 2% Paste - TD 0.5 inch Q6HPO THEE Administration Ondansetron HCl 4 mg 07/27/16 09:11 07/27/16 23:55 Zofran Injection IVPUSH 4 mg Q8H PRN Administration NAUSEA AND/OR VOMITING Pantoprazole Sodium 40 mg 07/28/16 10:00 07/28/16 09:29 Protonix - PO 40 mg DAILY THEE Administration plan: continue synthroid 137mcg daily bgm qid novolog scale
[2016-07-29] MEDS: PIPERACILLIN/TAZOB 2.25 GM 50 ML IVPB SCH ×3 (03:39→17:19)
[2016-07-29] MEDS: INSULIN SLIDING SCALE (NOVOLOG) 1 VIAL SQ SCH ×4 (06:07→22:07)
[2016-07-29] MEDS ORDERED: LEVOTHYROXINE NA 112 MCG TABLET (FP) ONE (06:09)
[2016-07-29] MEDS ORDERED: LEVOTHYROXINE NA 25 MCG TABLET (FP) ONE (06:09)
[2016-07-29] MEDS: LEVOTHYROXINE 112 MCG, LEVOTHYROXINE 25 MCG PO SCH (06:11)
[2016-07-29] MEDS: NITROGLYCERIN 2% OINTMENT - 1GM PACKET TD SCH ×4 (06:12→17:22)
[2016-07-29] MEDS: ALBUTEROL SO4 2.5/IPRATROPIUM 0.5 INH SOL 3 ML VIAL.NEB. NEB SCH ×3 (06:38→18:30)
[2016-07-29] MEDS: ONDANSETRON 4 MG/2 ML VIAL IVPUSH PRN (07:00)
[2016-07-29 07:52] LABS: BASOPHIL 0.1 % (0-2.0); MCH 24.8 pg (25.7-33.7); MCHC 31.1 g/dl (32.0-36.0); MEAN CELL VOLUME 79.8 fl (80-96); MEAN PLT VOLUME 9.1 fl (7.5-11.1); NEUTROPHILS 81.1 % (42.8-82.8); PLATELET COUNT 324 K/MM3 (134-434); RDW 18.9 % (11.6-15.6); WHITE BLOOD COUNT 12.5 K/mm3 (4.0-10.0)
[2016-07-29 08:16] LABS: ALBUMIN 2.6 g/dl (3.4-5.0); CALCIUM 8.5 mg/dL (8.5-10.1); PHOSPHOROUS 8.1 mg/dL (2.5-4.9)
[2016-07-29 08:26] LABS: BILIRUBIN,TOTAL 1.4 mg/dL (0.2-1.0)
--- NOTE | 2016-07-29 09:15 | PN ---
Progress Note, Physician History of Present Illness: Awake, alert Slightly tachypneic on bipap mask Afebrile , mild leukocytosis Cultures no growth - Current Medication List Current Medications: Active Medications Albuterol/Ipratropium (Duoneb -) 1 amp NEB QIDR [facility] Last Admin: 07/29/16 06:38 Dose: 1 amp Aspirin (Asa -) 81 mg PO DAILY [facility] Last Admin: 07/28/16 09:29 Dose: 81 mg Heparin Sodium (Porcine) (Heparin -) 1,000 unit IVPUSH PRN PRN PRN Reason: Heparin Heparin Sodium (Porcine) (Heparin -) 5,000 unit IVPUSH PRN PRN PRN Reason: Heparin Last Admin: 07/28/16 20:35 Dose: 5,000 unit Heparin Sodium (Porcine) 25, (000 unit/ Sodium Chloride) 500 mls @ 20 mls/hr IV TITR THEE; 1,000 UNIT/HR PRN Reason: Protocol Last Admin: 07/28/16 20:35 Dose: 10 mls/hr Piperacillin Sod/Tazobactam Sod (Zosyn 2.25gm Ivpb (Pre-Docked)) 50 mls @ 100 mls/hr IVPB Q8H-IV [facility] Last Admin: 07/29/16 03:39 Dose: 100 mls/hr Insulin Aspart (Novolog Vial Sliding Scale -) 1 vial SQ ACHS [facility] PRN Reason: Protocol Last Admin: 07/29/16 06:07 Dose: Not Given Levothyroxine Sodium 112 mcg/ (Levothyroxine Sodium 25 mcg) 137 mcg PO DAILY@ 0700 [facility] Last Admin: 07/29/16 06:11 Dose: 137 mcg Metoprolol Succinate (Toprol Xl -) 50 mg PO DAILY [facility] Last Admin: 07/28/16 09:29 Dose: 50 mg Nitroglycerin (Nitro-Bid 2% Paste -) 0.5 inch TD Q6HPO [facility] Last Admin: 07/29/16 06:12 Dose: 0.5 inch Ondansetron HCl (Zofran Injection) 4 mg IVPUSH Q8H PRN PRN Reason: NAUSEA AND/OR VOMITING Last Admin: 07/29/16 07:00 Dose: 4 mg Pantoprazole Sodium (Protonix -) 40 mg PO DAILY [facility] Last Admin: 07/28/16 09:29 Dose: 40 mg - Objective Vital Signs: Vital Signs Temperature 97.7 F 07/29/16 05:19 Pulse Rate 58 L 07/29/16 05:19 Respiratory Rate 19 07/29/16 05:19 Blood Pressure 103/43 07/29/16 05:19 O2 Sat by Pulse Oximetry (%) 99 07/29/16 06:30 Constitutional: Yes: No Distress, Obese Eyes: Yes: Conjunctiva Clear Cardiovascular: Yes: Regular Rate and Rhythm, S1, S2 Respiratory: Yes: Diminished Gastrointestinal: Yes: Normal Bowel Sounds, Soft, Abdomen, Obese. No: Tenderness Edema: Yes Edema: LLE: 1+, RLE: 1+ Labs: CBC, BMP 07/29/16 05:35 07/29/16 05:35 Assessment/Plan Possible HCAP RLL/ sepsis secondary to pneumonia CHF leukocytosis Azotemia/ renal failure Elevated LFTs GI consult noted Continue empiric zosyn, adjusted for renal failure Bipap
[2016-07-29 09:48] LABS: CALCIUM 8.4 mg/dL (8.5-10.1)
--- NOTE | 2016-07-29 09:51 | PN ---
Progress Note, Physician History of Present Illness: FEELS BETTER ON BIPAP - Current Medication List Current Medications: Active Medications Albuterol/Ipratropium (Duoneb -) 1 amp NEB QIDR [facility] Last Admin: 07/29/16 06:38 Dose: 1 amp Aspirin (Asa -) 81 mg PO DAILY [facility] Last Admin: 07/28/16 09:29 Dose: 81 mg Heparin Sodium (Porcine) (Heparin -) 1,000 unit IVPUSH PRN PRN PRN Reason: Heparin Heparin Sodium (Porcine) (Heparin -) 5,000 unit IVPUSH PRN PRN PRN Reason: Heparin Last Admin: 07/28/16 20:35 Dose: 5,000 unit Heparin Sodium (Porcine) 25, (000 unit/ Sodium Chloride) 500 mls @ 20 mls/hr IV TITR THEE; 1,000 UNIT/HR PRN Reason: Protocol Last Admin: 07/28/16 20:35 Dose: 10 mls/hr Piperacillin Sod/Tazobactam Sod (Zosyn 2.25gm Ivpb (Pre-Docked)) 50 mls @ 100 mls/hr IVPB Q8H-IV [facility] Last Admin: 07/29/16 03:39 Dose: 100 mls/hr Insulin Aspart (Novolog Vial Sliding Scale -) 1 vial SQ ACHS [facility] PRN Reason: Protocol Last Admin: 07/29/16 06:07 Dose: Not Given Levothyroxine Sodium 112 mcg/ (Levothyroxine Sodium 25 mcg) 137 mcg PO DAILY@ 0700 [facility] Last Admin: 07/29/16 06:11 Dose: 137 mcg Metoprolol Succinate (Toprol Xl -) 50 mg PO DAILY [facility] Last Admin: 07/28/16 09:29 Dose: 50 mg Nitroglycerin (Nitro-Bid 2% Paste -) 0.5 inch TD Q6HPO [facility] Last Admin: 07/29/16 06:12 Dose: 0.5 inch Ondansetron HCl (Zofran Injection) 4 mg IVPUSH Q8H PRN PRN Reason: NAUSEA AND/OR VOMITING Last Admin: 07/29/16 07:00 Dose: 4 mg Pantoprazole Sodium (Protonix -) 40 mg PO DAILY [facility] Last Admin: 07/28/16 09:29 Dose: 40 mg - Objective Vital Signs: Vital Signs Temperature 97.7 F 07/29/16 05:19 Pulse Rate 81 01/16/17 09:16 Respiratory Rate 19 07/29/16 05:19 Blood Pressure 103/43 07/29/16 05:19 O2 Sat by Pulse Oximetry (%) 96 07/29/16 09:16 Cardiovascular: Yes: S1, S2 Respiratory: Yes: On BiPap Gastrointestinal: Yes: Normal Bowel Sounds, Soft Labs: CBC, BMP 07/29/16 05:35 Problem List - Problems (1) Pneumonia Assessment/Plan: IV ABX ID CONSULT F/U CXR Code(s): J18.9 - PNEUMONIA, UNSPECIFIED ORGANISM Qualifiers: Pneumonia type: due to unspecified organism Laterality: right Lung location: unspecified part of lung Qualified Code(s): J18.9 - Pneumonia, unspecified organism (2) Acute hypercapnic respiratory failure Assessment/Plan: BIPAP NEBS PULM CONSULT Code(s): J96.02 - ACUTE RESPIRATORY FAILURE WITH HYPERCAPNIA (3) Acute on chronic systolic (congestive) heart failure Assessment/Plan: MONITOR AND PRN LASIX Code(s): I50.23 - ACUTE ON CHRONIC SYSTOLIC (CONGESTIVE) HEART FAILURE (4) DM2 (diabetes mellitus, type 2) Assessment/Plan: BGM ENDO Code(s): E11.9 - TYPE 2 DIABETES MELLITUS WITHOUT COMPLICATIONS (5) Sepsis Assessment/Plan: IV ABX CULTURES ID Code(s): A41.9 - SEPSIS, UNSPECIFIED ORGANISM (6) ARF (acute renal failure) Assessment/Plan: REPEAT LABS NOTED--CXR--MAY NEED FLUIDS RENAL Code(s): N17.9 - ACUTE KIDNEY FAILURE, UNSPECIFIED Qualifiers: Acute renal failure type: unspecified Qualified Code(s): N17.9 - Acute kidney failure, unspecified (7) Transaminitis Assessment/Plan: FOLLOW LABS US GI Code(s): R74.0 - NONSPEC ELEV OF LEVELS OF TRANSAMNS & LACTIC ACID DEHYDRGNSE
[2016-07-29] MEDS: HEPARIN - 25,000 UNIT in SODIUM CHLORIDE 495 ML IV SCH (10:00)
[2016-07-29] MEDS: METOPROLOL SUCCINATE 50 MG TAB.SR.24H (FP) PO SCH (10:02)
[2016-07-29] MEDS: PANTOPRAZOLE 40 MG TABLET (FP) PO SCH (10:02)
[2016-07-29] MEDS: ASPIRIN 81 MG CHEWABLE TABLETS PO SCH (10:02)
--- NOTE | 2016-07-29 10:25 | PN ---
Progress Note, Physician History of Present Illness: pulmonary alert,on nasal o2 4l,mildly dyspneic,o2 sat 97% - Current Medication List Current Medications: Active Medications Albuterol/Ipratropium (Duoneb -) 1 amp NEB QIDR [facility] Last Admin: 07/29/16 06:38 Dose: 1 amp Aspirin (Asa -) 81 mg PO DAILY [facility] Last Admin: 07/29/16 10:02 Dose: 81 mg Heparin Sodium (Porcine) (Heparin -) 1,000 unit IVPUSH PRN PRN PRN Reason: Heparin Heparin Sodium (Porcine) (Heparin -) 5,000 unit IVPUSH PRN PRN PRN Reason: Heparin Last Admin: 07/28/16 20:35 Dose: 5,000 unit Heparin Sodium (Porcine) 25, (000 unit/ Sodium Chloride) 500 mls @ 20 mls/hr IV TITR THEE; 1,000 UNIT/HR PRN Reason: Protocol Last Admin: 07/28/16 20:35 Dose: 10 mls/hr Piperacillin Sod/Tazobactam Sod (Zosyn 2.25gm Ivpb (Pre-Docked)) 50 mls @ 100 mls/hr IVPB Q8H-IV [facility] Last Admin: 07/29/16 10:02 Dose: 100 mls/hr Insulin Aspart (Novolog Vial Sliding Scale -) 1 vial SQ ACHS [facility] PRN Reason: Protocol Last Admin: 07/29/16 06:07 Dose: Not Given Levothyroxine Sodium 112 mcg/ (Levothyroxine Sodium 25 mcg) 137 mcg PO DAILY@ 0700 [facility] Last Admin: 07/29/16 06:11 Dose: 137 mcg Metoprolol Succinate (Toprol Xl -) 50 mg PO DAILY [facility] Last Admin: 07/29/16 10:02 Dose: 50 mg Nitroglycerin (Nitro-Bid 2% Paste -) 0.5 inch TD Q6HPO [facility] Last Admin: 07/29/16 06:12 Dose: 0.5 inch Ondansetron HCl (Zofran Injection) 4 mg IVPUSH Q8H PRN PRN Reason: NAUSEA AND/OR VOMITING Last Admin: 07/29/16 07:00 Dose: 4 mg Pantoprazole Sodium (Protonix -) 40 mg PO DAILY [facility] Last Admin: 07/29/16 10:02 Dose: 40 mg - Objective Vital Signs: Vital Signs Temperature 97.7 F 07/29/16 05:19 Pulse Rate 81 07/29/16 09:16 Respiratory Rate 19 07/29/16 05:19 Blood Pressure 103/43 07/29/16 05:19 O2 Sat by Pulse Oximetry (%) 96 07/29/16 09:16 Constitutional: Yes: Well Nourished, Calm Eyes: Yes: WNL HENT: Yes: WNL Neck: Yes: WNL Cardiovascular: Yes: Regular Rate and Rhythm, S1, S2 Respiratory: Yes: Rhonchi (scattered sara rhonchi) Gastrointestinal: Yes: Normal Bowel Sounds, Soft Extremities: Yes: WNL Edema: Yes Labs: CBC, BMP 07/29/16 05:35 07/29/16 09:15 Assessment/Plan ACUTE ON CHRONIC RESP FAILURE/O2 DEPENDANT LIKELY RIGHT LOWER LOBE INFILTRATE PNEUMONIA,?POST INFLUENZA LACTIC ACID ELEVATED PLAN CONTINUE BIPAP ALT WITH NASAL O2 CONT ANTIBIOTICS INHALED BRONCHODILATORS CHECK LACTATE DR MALONE Problem List - Problems (1) CHF (congestive heart failure) Code(s): I50.9 - HEART FAILURE, UNSPECIFIED Qualifiers: Congestive heart failure type: unspecified congestive heart failure type Congestive heart failure chronicity: acute on chronic Qualified Code(s ): I50.9 - Heart failure, unspecified (2) Pneumonia Code(s): J18.9 - PNEUMONIA, UNSPECIFIED ORGANISM Qualifiers: Pneumonia type: due to unspecified organism Laterality: right Lung location: unspecified part of lung Qualified Code(s): J18.9 - Pneumonia, unspecified organism (3) Transaminitis Code(s): R74.0 - NONSPEC ELEV OF LEVELS OF TRANSAMNS & LACTIC ACID DEHYDRGNSE (4) Acute hypercapnic respiratory failure Code(s): J96.02 - ACUTE RESPIRATORY FAILURE WITH HYPERCAPNIA (5) Acute on chronic systolic (congestive) heart failure Code(s): I50.23 - ACUTE ON CHRONIC SYSTOLIC (CONGESTIVE) HEART FAILURE (6) CAD (coronary artery disease) Code(s): I25.10 - ATHSCL HEART DISEASE OF [place] CORONARY ARTERY W/O ANG PCTRS
--- NOTE | 2016-07-29 12:14 | PN ---
Progress Note, Physician History of Present Illness: Off BiPAP today Feels breathing slightly improved Tele: NSR at 60s no PVCs - Current Medication List Current Medications: Active Medications Albuterol/Ipratropium (Duoneb -) 1 amp NEB QIDR [facility] Last Admin: 07/29/16 11:24 Dose: 1 amp Aspirin (Asa -) 81 mg PO DAILY [facility] Last Admin: 07/29/16 10:02 Dose: 81 mg Heparin Sodium (Porcine) (Heparin -) 1,000 unit IVPUSH PRN PRN PRN Reason: Heparin Heparin Sodium (Porcine) (Heparin -) 5,000 unit IVPUSH PRN PRN PRN Reason: Heparin Last Admin: 07/28/16 20:35 Dose: 5,000 unit Heparin Sodium (Porcine) 25, (000 unit/ Sodium Chloride) 500 mls @ 20 mls/hr IV TITR [facility]; 1,000 UNIT/HR PRN Reason: Protocol Last Admin: 07/28/16 20:35 Dose: 10 mls/hr Piperacillin Sod/Tazobactam Sod (Zosyn 2.25gm Ivpb (Pre-Docked)) 50 mls @ 100 mls/hr IVPB Q8H-IV [facility] Last Admin: 07/29/16 10:02 Dose: 100 mls/hr Insulin Aspart (Novolog Vial Sliding Scale -) 1 vial SQ ACHS [facility] PRN Reason: Protocol Last Admin: 07/29/16 11:51 Dose: Not Given Levothyroxine Sodium 112 mcg/ (Levothyroxine Sodium 25 mcg) 137 mcg PO DAILY@ 0700 [facility] Last Admin: 07/29/16 06:11 Dose: 137 mcg Metoprolol Succinate (Toprol Xl -) 50 mg PO DAILY [facility] Last Admin: 07/29/16 10:02 Dose: 50 mg Nitroglycerin (Nitro-Bid 2% Paste -) 0.5 inch TD Q6HPO [facility] Last Admin: 07/29/16 06:12 Dose: 0.5 inch Ondansetron HCl (Zofran Injection) 4 mg IVPUSH Q8H PRN PRN Reason: NAUSEA AND/OR VOMITING Last Admin: 07/29/16 07:00 Dose: 4 mg Pantoprazole Sodium (Protonix -) 40 mg PO DAILY [facility] Last Admin: 07/29/16 10:02 Dose: 40 mg - Objective Vital Signs: Vital Signs Temperature 97.7 F 07/29/16 05:19 Pulse Rate 63 07/29/16 10:00 Respiratory Rate 18 07/29/16 10:00 Blood Pressure 114/51 07/29/16 10:00 O2 Sat by Pulse Oximetry (%) 97 07/29/16 10:00 Constitutional: Yes: No Distress, Calm Eyes: Yes: WNL HENT: Yes: WNL Neck: Yes: WNL Cardiovascular: Yes: Regular Rate and Rhythm, Murmur Respiratory: Yes: Rales, Rhonchi Extremities: Yes: WNL Edema: Yes Edema: LLE: Trace, RLE: Trace Labs: CBC, BMP 07/29/16 05:35 07/29/16 09:15 Assessment/Plan 5 yo female admitted with respiratory distress and (+) troponin secondary to underlying pulmonic process (pneumonia vs influenza) with elevated Lactate 1) (+) troponin -Likely demand related -Trending down -Continue asa and on IV UFH -DC statin given LFTs -OK to contiunue BB if BP tolerates 2) CHF -Likely related to onoing pulmonary infection (?pneumonia) -Has CMY from last admission -Was treated with Torsemide -Would continue to hold diuresis (elevated Cr to 4 today) 3) Pneumonia -Treatment as per primary team
--- NOTE | 2016-07-29 15:02 | PN ---
Progress Note, Physician History of Present Illness: Pt seen and examined at bedside. She is now off of bipap. She feels that her breathing is improved today compared to yesterday. She however does complains of fatigue and does not feel her breathing is at baseline. She denies fevers or chills. - Current Medication List Current Medications: Active Medications Albuterol/Ipratropium (Duoneb -) 1 amp NEB QIDR [facility] Last Admin: 07/29/16 11:24 Dose: 1 amp Aspirin (Asa -) 81 mg PO DAILY [facility] Last Admin: 07/29/16 10:02 Dose: 81 mg Heparin Sodium (Porcine) (Heparin -) 1,000 unit IVPUSH PRN PRN PRN Reason: Heparin Heparin Sodium (Porcine) (Heparin -) 5,000 unit IVPUSH PRN PRN PRN Reason: Heparin Last Admin: 07/28/16 20:35 Dose: 5,000 unit Heparin Sodium (Porcine) 25, (000 unit/ Sodium Chloride) 500 mls @ 20 mls/hr IV TITR [facility]; 1,000 UNIT/HR PRN Reason: Protocol Last Admin: 07/28/16 20:35 Dose: 10 mls/hr Piperacillin Sod/Tazobactam Sod (Zosyn 2.25gm Ivpb (Pre-Docked)) 50 mls @ 100 mls/hr IVPB Q8H-IV [facility] Last Admin: 07/29/16 10:02 Dose: 100 mls/hr Insulin Aspart (Novolog Vial Sliding Scale -) 1 vial SQ ACHS [facility] PRN Reason: Protocol Last Admin: 07/29/16 11:51 Dose: Not Given Levothyroxine Sodium 112 mcg/ (Levothyroxine Sodium 25 mcg) 137 mcg PO DAILY@ 0700 [facility] Last Admin: 07/29/16 06:11 Dose: 137 mcg Metoprolol Succinate (Toprol Xl -) 50 mg PO DAILY [facility] Last Admin: 07/29/16 10:02 Dose: 50 mg Nitroglycerin (Nitro-Bid 2% Paste -) 0.5 inch TD Q6HPO [facility] Last Admin: 07/29/16 12:00 Dose: 0.5 inch Ondansetron HCl (Zofran Injection) 4 mg IVPUSH Q8H PRN PRN Reason: NAUSEA AND/OR VOMITING Last Admin: 07/29/16 07:00 Dose: 4 mg Pantoprazole Sodium (Protonix -) 40 mg PO DAILY [facility] Last Admin: 07/29/16 10:02 Dose: 40 mg - Objective Vital Signs: Vital Signs Temperature 97.7 F 07/29/16 05:19 Pulse Rate 63 07/29/16 10:00 Respiratory Rate 18 07/29/16 10:00 Blood Pressure 114/51 07/29/16 10:00 O2 Sat by Pulse Oximetry (%) 97 07/29/16 10:00 Constitutional: Yes: Calm Eyes: Yes: Conjunctiva Clear Cardiovascular: Yes: S1, S2 Respiratory: Yes: On Nasal O2, Rhonchi Gastrointestinal: Yes: Soft, Abdomen, Obese Genitourinary: Yes: [place] Present Musculoskeletal: Yes: Muscle Weakness Edema: Yes Edema: LLE: Trace, RLE: Trace Neurological: Yes: Oriented Labs: CBC, BMP 07/29/16 05:35 07/29/16 09:15 Problem List - Problems (1) ARF (acute renal failure) Code(s): N17.9 - ACUTE KIDNEY FAILURE, UNSPECIFIED Qualifiers: Acute renal failure type: unspecified Qualified Code(s): N17.9 - Acute kidney failure, unspecified (2) CHF (congestive heart failure) Code(s): I50.9 - HEART FAILURE, UNSPECIFIED Qualifiers: Congestive heart failure type: unspecified congestive heart failure type Congestive heart failure chronicity: acute on chronic Qualified Code(s ): I50.9 - Heart failure, unspecified (3) Pneumonia Code(s): J18.9 - PNEUMONIA, UNSPECIFIED ORGANISM Qualifiers: Pneumonia type: due to unspecified organism Laterality: right Lung location: unspecified part of lung Qualified Code(s): J18.9 - Pneumonia, unspecified organism (4) Transaminitis Code(s): R74.0 - NONSPEC ELEV OF LEVELS OF TRANSAMNS & LACTIC ACID DEHYDRGNSE (5) Acute hypercapnic respiratory failure Code(s): J96.02 - ACUTE RESPIRATORY FAILURE WITH HYPERCAPNIA (6) CAD (coronary artery disease) Code(s): I25.10 - ATHSCL HEART DISEASE OF [place] CORONARY ARTERY W/O ANG PCTRS (7) DM2 (diabetes mellitus, type 2) Code(s): E11.9 - TYPE 2 DIABETES MELLITUS WITHOUT COMPLICATIONS (8) GERD (gastroesophageal reflux disease) Code(s): K21.9 - GASTRO-ESOPHAGEAL REFLUX DISEASE WITHOUT ESOPHAGITIS (9) HTN (hypertension) Code(s): I10 - ESSENTIAL (PRIMARY) HYPERTENSION Assessment/Plan Current Medica Current Medications Generic Name Dose Route Start Last Admin Trade Name Freq PRN Reason Stop Dose Admin Albuterol/Ipratropium 1 amp 07/27/16 12:00 07/29/16 11:24 Duoneb - NEB 1 amp QIDR [facility] Administration Aspirin 81 mg 07/28/16 10:00 07/29/16 10:02 Asa - PO 81 mg DAILY [facility] Administration Heparin Sodium (Porcine) 1,000 unit 07/26/16 16:04 Heparin - IVPUSH PRN PRN Heparin Heparin Sodium (Porcine) 5,000 unit 07/26/16 16:04 07/28/16 20:35 Heparin - IVPUSH 5,000 unit PRN PRN Administration Heparin Heparin Sodium (Porcine) 25, 500 mls @ 20 mls/hr 07/26/16 16:15 07/28/16 20:35 000 unit/ Sodium Chloride IV 10 mls/hr TITR [facility] Administration Protocol 1,000 UNIT/HR Piperacillin Sod/Tazobactam Sod 50 mls @ 100 mls/hr 07/27/16 12:45 07/29/16 10: 02 Zosyn 2.25gm Ivpb (Pre-Docked) IVPB 100 mls/hr Q8H-IV [facility] Administration Insulin Aspart 1 vial 07/27/16 16:30 07/29/16 11:51 Novolog Vial Sliding Scale - SQ Not Given ACHS [facility] Protocol Levothyroxine Sodium 112 mcg/ 137 mcg 07/28/16 07:00 07/29/16 06:11 Levothyroxine Sodium 25 mcg PO 137 mcg DAILY@0700 [facility] Administration Metoprolol Succinate 50 mg 07/28/16 10:00 07/29/16 10:02 Toprol Xl - PO 50 mg DAILY [facility] Administration Nitroglycerin 0.5 inch 07/26/16 18:00 07/29/16 12:00 Nitro-Bid 2% Paste - TD 0.5 inch Q6HPO [facility] Administration Ondansetron HCl 4 mg 07/27/16 09:11 07/29/16 07:00 Zofran Injection IVPUSH 4 mg Q8H PRN Administration NAUSEA AND/OR VOMITING Pantoprazole Sodium 40 mg 07/28/16 10:00 07/29/16 10:02 Protonix - PO 40 mg DAILY [facility] Administration Laboratory Tests 07/28/16 07/28/16 07/29/16 21:00 21:00 05:35 Ur Random Sodium 9 Ur Random Urea Nitrogn 446 Urine Creatinine 61.1 YAHIR Screen Pending c-ANCA Pending Proteinase 3 (PR3) Pending p-ANCA Pending Atypical p-ANCA Pending Myeloperoxidase Ab Pending Hepatitis A Ab Total Pending Hep Bs Antigen Pending Hep Bs Antibody Pending Hep B Core Total Ab Pending Hepatitis C Antibody Pending Impression 1. JEANIE 2. hyperkalemia 3. CHF 4. resp failure requiring bipap 5. HTN 6. PNA 7. COPD 8. hyponatremia 9. trasnaminitis 10. hypothyroidism Plan - renal function continues to worsen - FENA is 0.39 percent and FEUrea is 23 percent, both of which are consistent with pre-renal disease - check cxr today - check echo please, ordered - will hold off lasix for now - renal workup is in progress - will repeat UA - check echo, suspect right heart failure with liver congestion - low potassium renal diet - cont with bipap as needed - monitor pulse ox - keep on tele monitor - will follow Dr Mahoney
[2016-07-29 18:58] LABS: URINE APPEARANCE SLCLOUDY; URINE BILIRUBIN NEGATIVE (NEGATIVE); URINE COLOR YELLOW; URINE GLUCOSE (UA) NEGATIVE (NEGATIVE); URINE KETONE NEGATIVE (NEGATIVE); URINE LEUK ESTERASE NEGATIVE (NEGATIVE); URINE NITRITE NEGATIVE (NEGATIVE); URINE PROTEIN NEGATIVE (NEGATIVE); URINE UROBILINOGEN NEGATIVE E.U./dl (0.2-1.0)
[2016-07-29 19:01] LABS: URINE BLOOD 1+ (NEGATIVE)
[2016-07-29 19:02] LABS: URINE MUCUS RARE; URINE RBC 53 /hpf (0-3); URINE WBC 9 /hpf (3-5)
[2016-07-30] MEDS: PIPERACILLIN/TAZOB 2.25 GM 50 ML IVPB SCH ×3 (02:15→17:25)
[2016-07-30] MEDS: ALBUTEROL SO4 2.5/IPRATROPIUM 0.5 INH SOL 3 ML VIAL.NEB. NEB SCH ×5 (06:00→23:26)
[2016-07-30] MEDS: INSULIN SLIDING SCALE (NOVOLOG) 1 VIAL SQ SCH ×3 (06:14→17:26)
[2016-07-30] MEDS ORDERED: LEVOTHYROXINE NA 25 MCG TABLET (FP) ONE (06:16)
[2016-07-30] MEDS ORDERED: LEVOTHYROXINE NA 112 MCG TABLET (FP) ONE (06:16)
[2016-07-30] MEDS: NITROGLYCERIN 2% OINTMENT - 1GM PACKET TD SCH ×4 (06:44→17:25)
[2016-07-30] MEDS: LEVOTHYROXINE 112 MCG, LEVOTHYROXINE 25 MCG PO SCH (06:44)
[2016-07-30 08:29] LABS: CALCIUM 8.2 mg/dL (8.5-10.1); CREATININE 4.2 mg/dL (0.55-1.02)
--- NOTE | 2016-07-30 08:36 | PN ---
Progress Note, Physician History of Present Illness: FEELS BETTER ON BIPAP - Current Medication List Current Medications: Active Medications Albuterol/Ipratropium (Duoneb -) 1 amp NEB QIDR [facility] Last Admin: 07/30/16 06:00 Dose: 1 amp Aspirin (Asa -) 81 mg PO DAILY [facility] Last Admin: 07/29/16 10:02 Dose: 81 mg Heparin Sodium (Porcine) (Heparin -) 1,000 unit IVPUSH PRN PRN PRN Reason: Heparin Heparin Sodium (Porcine) (Heparin -) 5,000 unit IVPUSH PRN PRN PRN Reason: Heparin Last Admin: 07/28/16 20:35 Dose: 5,000 unit Heparin Sodium (Porcine) 25, (000 unit/ Sodium Chloride) 500 mls @ 20 mls/hr IV TITR [facility]; 1,000 UNIT/HR PRN Reason: Protocol Last Admin: 07/29/16 10:00 Dose: 7 mls/hr Piperacillin Sod/Tazobactam Sod (Zosyn 2.25gm Ivpb (Pre-Docked)) 50 mls @ 100 mls/hr IVPB Q8H-IV [facility] Last Admin: 07/30/16 02:15 Dose: 100 mls/hr Insulin Aspart (Novolog Vial Sliding Scale -) 1 vial SQ ACHS [facility] PRN Reason: Protocol Last Admin: 07/30/16 06:14 Dose: Not Given Levothyroxine Sodium 112 mcg/ (Levothyroxine Sodium 25 mcg) 137 mcg PO DAILY@ 0700 [facility] Last Admin: 07/30/16 06:44 Dose: 137 mcg Metoprolol Succinate (Toprol Xl -) 50 mg PO DAILY [facility] Last Admin: 07/29/16 10:02 Dose: 50 mg Nitroglycerin (Nitro-Bid 2% Paste -) 0.5 inch TD Q6HPO [facility] Last Admin: 07/30/16 06:44 Dose: 0.5 inch Ondansetron HCl (Zofran Injection) 4 mg IVPUSH Q8H PRN PRN Reason: NAUSEA AND/OR VOMITING Last Admin: 07/29/16 07:00 Dose: 4 mg Pantoprazole Sodium (Protonix -) 40 mg PO DAILY [facility] Last Admin: 07/29/16 10:02 Dose: 40 mg - Objective Vital Signs: Vital Signs Temperature 97.3 F L 07/30/16 02:00 Pulse Rate 68 07/30/16 06:00 Respiratory Rate 20 07/30/16 06:00 Blood Pressure 104/54 07/30/16 06:00 O2 Sat by Pulse Oximetry (%) 92 L 07/29/16 21:00 Cardiovascular: Yes: S1, S2 Respiratory: Yes: Diminished, On Nasal O2, Rhonchi Gastrointestinal: Yes: Normal Bowel Sounds, Soft, Other (COLOSTOMY) Problem List - Problems (1) Pneumonia Assessment/Plan: IV ABX ID CONSULT F/U CXR Code(s): J18.9 - PNEUMONIA, UNSPECIFIED ORGANISM Qualifiers: Pneumonia type: due to unspecified organism Laterality: right Lung location: unspecified part of lung Qualified Code(s): J18.9 - Pneumonia, unspecified organism (2) Acute hypercapnic respiratory failure Assessment/Plan: BIPAP NEBS PULM CONSULT Code(s): J96.02 - ACUTE RESPIRATORY FAILURE WITH HYPERCAPNIA (3) Acute on chronic systolic (congestive) heart failure Assessment/Plan: MONITOR AND PRN LASIX Code(s): I50.23 - ACUTE ON CHRONIC SYSTOLIC (CONGESTIVE) HEART FAILURE (4) DM2 (diabetes mellitus, type 2) Assessment/Plan: BGM ENDO Code(s): E11.9 - TYPE 2 DIABETES MELLITUS WITHOUT COMPLICATIONS (5) Sepsis Assessment/Plan: IV ABX CULTURES ID Code(s): A41.9 - SEPSIS, UNSPECIFIED ORGANISM (6) ARF (acute renal failure) Assessment/Plan: REPEAT LABS NOTED--CXR--MAY NEED FLUIDS RENAL Code(s): N17.9 - ACUTE KIDNEY FAILURE, UNSPECIFIED Qualifiers: Acute renal failure type: unspecified Qualified Code(s): N17.9 - Acute kidney failure, unspecified (7) Transaminitis Assessment/Plan: FOLLOW LABS US GI Code(s): R74.0 - NONSPEC ELEV OF LEVELS OF TRANSAMNS & LACTIC ACID DEHYDRGNSE
[2016-07-30] MEDS: ASPIRIN 81 MG CHEWABLE TABLETS PO SCH (09:35)
[2016-07-30] MEDS: PANTOPRAZOLE 40 MG TABLET (FP) PO SCH (09:35)
[2016-07-30] MEDS: METOPROLOL SUCCINATE 50 MG TAB.SR.24H (FP) PO SCH (09:36)
[2016-07-30 09:44] LABS: MCH 24.5 pg (25.7-33.7); MCHC 30.8 g/dl (32.0-36.0); MEAN CELL VOLUME 79.7 fl (80-96); MEAN PLT VOLUME 8.8 fl (7.5-11.1); PLATELET COUNT 254 K/MM3 (134-434); RDW 18.9 % (11.6-15.6); WHITE BLOOD COUNT 12.9 K/mm3 (4.0-10.0)
[2016-07-30 09:47] LABS: ALBUMIN 2.6 g/dl (3.4-5.0); BILIRUBIN,TOTAL 1.4 mg/dL (0.2-1.0); TOT PROT 6.7 g/dl (6.4-8.2)
--- NOTE | 2016-07-30 10:16 | PN ---
Progress Note (short form) - Note Progress Note: CC: respiratory distress S: Feels weak, denies cp, sob, palps, dizziness Current Medications Albuterol/Ipratropium (Duoneb -) 1 amp NEB QIDR [facility] Last Admin: 07/30/16 06:00 Dose: 1 amp Aspirin (Asa -) 81 mg PO DAILY [facility] Last Admin: 07/30/16 09:35 Dose: 81 mg Heparin Sodium (Porcine) (Heparin -) 1,000 unit IVPUSH PRN PRN PRN Reason: Heparin Heparin Sodium (Porcine) (Heparin -) 5,000 unit IVPUSH PRN PRN PRN Reason: Heparin Last Admin: 07/28/16 20:35 Dose: 5,000 unit Heparin Sodium (Porcine) 25, (000 unit/ Sodium Chloride) 500 mls @ 20 mls/hr IV TITR [facility]; 1,000 UNIT/HR PRN Reason: Protocol Last Titration: 07/30/16 09:32 Dose: 350 unit/hr Piperacillin Sod/Tazobactam Sod (Zosyn 2.25gm Ivpb (Pre-Docked)) 50 mls @ 100 mls/hr IVPB Q8H-IV [facility] Last Admin: 07/30/16 09:35 Dose: 100 mls/hr Insulin Aspart (Novolog Vial Sliding Scale -) 1 vial SQ ACHS [facility] PRN Reason: Protocol Last Admin: 07/30/16 06:14 Dose: Not Given Levothyroxine Sodium 112 mcg/ (Levothyroxine Sodium 25 mcg) 137 mcg PO DAILY@ 0700 [facility] Last Admin: 07/30/16 06:44 Dose: 137 mcg Metoprolol Succinate (Toprol Xl -) 50 mg PO DAILY [facility] Last Admin: 07/30/16 09:36 Dose: 50 mg Nitroglycerin (Nitro-Bid 2% Paste -) 0.5 inch TD Q6HPO [facility] Last Admin: 07/30/16 06:44 Dose: 0.5 inch Ondansetron HCl (Zofran Injection) 4 mg IVPUSH Q8H PRN PRN Reason: NAUSEA AND/OR VOMITING Last Admin: 07/29/16 07:00 Dose: 4 mg Pantoprazole Sodium (Protonix -) 40 mg PO DAILY [facility] Last Admin: 07/30/16 09:35 Dose: 40 mg Vital Signs - 24 hr 0107/29/16 07/29/16 16:12 18:00 21:00 Temperature 97.8 F 97.2 F L Pulse Rate 67 69 Respiratory 20 19 Rate Blood Pressure 110/51 116/58 O2 Sat by Pulse 92 L Oximetry (%) 07/29/16 07/30/16 07/30/16 22:00 02:00 06:00 Temperature 97.0 F L 97.3 F L Pulse Rate 72 71 68 Respiratory 20 20 20 Rate Blood Pressure 118/64 116/72 104/54 O2 Sat by Pulse Oximetry (%) 07/30/16 09:01 Temperature 97.9 F Pulse Rate 77 Respiratory 22 Rate Blood Pressure 129/89 O2 Sat by Pulse Oximetry (%) Intake & Output 07/28/16 07/29/16 07/30/16 07/31/16 07:59 07:59 07:59 07:59 Intake Total 840 400 80 Output Total 300 750 400 650 Balance 540 -350 -320 -650 Weight 162 lb 8 oz (lift scale) Constitutional: Yes: No Distress, Calm Eyes: Yes: WNL HENT: Yes: WNL Neck: Yes: WNL Cardiovascular: Yes: Regular Rate and Rhythm, Murmur Respiratory: Yes: Rales, Rhonchi Extremities: Yes: WNL Edema: Yes Edema: LLE: Trace, RLE: Trace Labs: CBC, BMP 07/30/16 05:35 07/30/16 05:35 Laboratory Tests 07/29/16 07/30/16 09:15 05:35 Sodium 132 L BUN 117 H* Creatinine 4.0 H Lactic Acid 8.512 H* Tele: NSR, frequent PVCs echo today: nl lv fn. Nl rv size, + depressed RV fn. 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 Severe MR. severe phtn. echo 03/2016: mild lv dilation. Mild red lv fn (global). mod MR, mild TR. pleural effusion. Assessment/Plan a/p: 75 yo with h/o hypertension, hyperlipidemia, coronary artery disease s/p CABG x 4 (2000), ischemic cardiomyopathy, peripheral vascular disease, carotid atherosclerosis s/p bilateral CEA, chronic obstructive pulmonary disease, perforated colon likely 2/2 diverticulitis s/p sigmoid colectomy, colostomy, mucous fistula, drainage of abscess, lavage 02/2016 (c/b HF exacerbation/ respiratory failure requiring prolonged intubation and R chest tube) now with respiratory distress possible pna. Acute severe MR - 2/2 flail leaflet vs. endocarditis. Either way is symptomatic with HF. Has surgical indication, may also need R/LHC. Needs urgent CT surgery evaluation. Will d/w surgery regarding transfer. - con't aggressive bp control. 1) (+) troponin CAD s/p CABG -Likely demand related -Trending down -Continue asa (plavix was deferred) and s/p IV UFH x 72 hrs. Now stopped -DC statin given LFTs - contiunue BB if BP tolerates 2) Biventricular Cardiomyopathy/acute syst CHF - recent office echo 09/26, had normalization of lv/rv function (previously depressed to 45%). Acute worsening of systolic dysfunction on recent admission likely in setting of severe illness/sepsis with bacteremia, and volume overload. - repeat echo today if shows significant worsening of EF may need milrinone in addition to diuresis. - previously diuresed with 80 mg IV lasix bid. prior home regimens have been lasix 80 mg bid and most recently torsemide 40 mg daily. Has not received po regimen here. S/p lasix 40 mg IV x 1 on 07/26 and 07/28. BUN/CR progressively worsening. - 07/30 echo shows normalization of LVEF, RV dysfunction. Does not appear significantly volume overloaded here but given severe MR and RV dysfunction will consider diuresis tomorrow if she is still here. 3) Pneumonia -Treatment as per primary team 4) PVD/carotid disease s/p B CEA - statin on hold, ASA
--- NOTE | 2016-07-30 10:52 | PN ---
Progress Note, Physician History of Present Illness: pulmonary alert,not feeling well,sob - Current Medication List Current Medications: Active Medications Albuterol/Ipratropium (Duoneb -) 1 amp NEB QIDR [facility] Last Admin: 07/30/16 06:00 Dose: 1 amp Aspirin (Asa -) 81 mg PO DAILY [facility] Last Admin: 07/30/16 09:35 Dose: 81 mg Piperacillin Sod/Tazobactam Sod (Zosyn 2.25gm Ivpb (Pre-Docked)) 50 mls @ 100 mls/hr IVPB Q8H-IV [facility] Last Admin: 07/30/16 09:35 Dose: 100 mls/hr Insulin Aspart (Novolog Vial Sliding Scale -) 1 vial SQ ACHS [facility] PRN Reason: Protocol Last Admin: 07/30/16 06:14 Dose: Not Given Levothyroxine Sodium 112 mcg/ (Levothyroxine Sodium 25 mcg) 137 mcg PO DAILY@ 0700 [facility] Last Admin: 07/30/16 06:44 Dose: 137 mcg Metoprolol Succinate (Toprol Xl -) 50 mg PO DAILY [facility] Last Admin: 07/30/16 09:36 Dose: 50 mg Nitroglycerin (Nitro-Bid 2% Paste -) 0.5 inch TD Q6HPO [facility] Last Admin: 07/30/16 06:44 Dose: 0.5 inch Ondansetron HCl (Zofran Injection) 4 mg IVPUSH Q8H PRN PRN Reason: NAUSEA AND/OR VOMITING Last Admin: 07/29/16 07:00 Dose: 4 mg Pantoprazole Sodium (Protonix -) 40 mg PO DAILY [facility] Last Admin: 07/30/16 09:35 Dose: 40 mg - Objective Vital Signs: Vital Signs Temperature 97.9 F 07/30/16 09:01 Pulse Rate 77 07/30/16 09:01 Respiratory Rate 22 07/30/16 09:01 Blood Pressure 129/89 07/30/16 09:01 O2 Sat by Pulse Oximetry (%) 92 L 07/29/16 21:00 Constitutional: Yes: Well Nourished, Calm Eyes: Yes: WNL HENT: Yes: WNL Neck: Yes: WNL Cardiovascular: Yes: Regular Rate and Rhythm, S1, S2 Respiratory: Yes: Rhonchi (scattered sara rhonchi) Gastrointestinal: Yes: Normal Bowel Sounds, Soft Extremities: Yes: WNL Edema: Yes Labs: CBC, BMP 07/30/16 05:35 07/30/16 05:35 - ....Imaging Chest X-ray: Report Reviewed (no change,rll atelectasis), Image Reviewed Other: Other (ECHO UNOFFICIAL REPORT,? VEGETATION MITRAL VALVE, MODERATE- SEVERE REGURG,MODERATE TRICUSPID REGURG) Assessment/Plan ACUTE ON CHRONIC RESP FAILURE/O2 DEPENDANT LIKELY RIGHT LOWER LOBE INFILTRATE PNEUMONIA,?POST INFLUENZA LACTIC ACID ELEVATED ELEVATED LFTS ? ENDOCARDITIS PLAN CONTINUE BIPAP ALT WITH NASAL O2 CONT ANTIBIOTICS PER ID INHALED BRONCHODILATORS MONITOR LACTATE MONITOR LFTS ?OJSE M DR MALONE Problem List - Problems (1) CHF (congestive heart failure) Code(s): I50.9 - HEART FAILURE, UNSPECIFIED Qualifiers: Congestive heart failure type: unspecified congestive heart failure type Congestive heart failure chronicity: acute on chronic Qualified Code(s ): I50.9 - Heart failure, unspecified (2) Pneumonia Code(s): J18.9 - PNEUMONIA, UNSPECIFIED ORGANISM Qualifiers: Pneumonia type: due to unspecified organism Laterality: right Lung location: unspecified part of lung Qualified Code(s): J18.9 - Pneumonia, unspecified organism (3) Transaminitis Code(s): R74.0 - NONSPEC ELEV OF LEVELS OF TRANSAMNS & LACTIC ACID DEHYDRGNSE (4) Acute hypercapnic respiratory failure Code(s): J96.02 - ACUTE RESPIRATORY FAILURE WITH HYPERCAPNIA (5) Acute on chronic systolic (congestive) heart failure Code(s): I50.23 - ACUTE ON CHRONIC SYSTOLIC (CONGESTIVE) HEART FAILURE (6) CAD (coronary artery disease) Code(s): I25.10 - ATHSCL HEART DISEASE OF [place] CORONARY ARTERY W/O ANG PCTRS
--- NOTE | 2016-07-30 11:36 | PN ---
Progress Note, Physician Chief Complaint: Awake and alert C/O thirst Appears comfortable on nasal cannula O2 Afebrile, WBC remains slightly elevated Increased lactic acid noted Liver enzyme elevation and azotemia persist - Current Medication List Current Medications: Active Medications Albuterol/Ipratropium (Duoneb -) 1 amp NEB QIDR [facility] Last Admin: 07/30/16 06:00 Dose: 1 amp Aspirin (Asa -) 81 mg PO DAILY [facility] Last Admin: 07/30/16 09:35 Dose: 81 mg Piperacillin Sod/Tazobactam Sod (Zosyn 2.25gm Ivpb (Pre-Docked)) 50 mls @ 100 mls/hr IVPB Q8H-IV [facility] Last Admin: 07/30/16 09:35 Dose: 100 mls/hr Insulin Aspart (Novolog Vial Sliding Scale -) 1 vial SQ ACHS [facility] PRN Reason: Protocol Last Admin: 07/30/16 06:14 Dose: Not Given Levothyroxine Sodium 112 mcg/ (Levothyroxine Sodium 25 mcg) 137 mcg PO DAILY@ 0700 [facility] Last Admin: 07/30/16 06:44 Dose: 137 mcg Metoprolol Succinate (Toprol Xl -) 50 mg PO DAILY [facility] Last Admin: 07/30/16 09:36 Dose: 50 mg Nitroglycerin (Nitro-Bid 2% Paste -) 0.5 inch TD Q6HPO [facility] Last Admin: 07/30/16 06:44 Dose: 0.5 inch Ondansetron HCl (Zofran Injection) 4 mg IVPUSH Q8H PRN PRN Reason: NAUSEA AND/OR VOMITING Last Admin: 07/29/16 07:00 Dose: 4 mg Pantoprazole Sodium (Protonix -) 40 mg PO DAILY [facility] Last Admin: 07/30/16 09:35 Dose: 40 mg - Objective Vital Signs: Vital Signs Temperature 97.9 F 07/30/16 09:01 Pulse Rate 77 07/30/16 09:01 Respiratory Rate 22 07/30/16 09:01 Blood Pressure 129/89 07/30/16 09:01 O2 Sat by Pulse Oximetry (%) 94 L 07/30/16 08:00 Constitutional: Yes: No Distress Cardiovascular: Yes: Regular Rate and Rhythm, Murmur, S1, S2 Respiratory: Yes: Diminished Gastrointestinal: Yes: Normal Bowel Sounds, Soft, Abdomen, Obese. No: Tenderness Edema: Yes Labs: CBC, BMP 07/30/16 05:35 07/30/16 05:35 Assessment/Plan Possible HCAP RLL/ sepsis secondary to pneumonia CHF leukocytosis Azotemia/ renal failure Elevated LFTs Continue empiric zosyn
--- NOTE | 2016-07-30 14:07 | PN ---
Progress Note, Physician History of Present Illness: Pt seen and examined at bedside. She is more awake and alert today. She says her breathing is improved. She denies chest pain or palpitations. - Current Medication List Current Medications: Active Medications Albuterol/Ipratropium (Duoneb -) 1 amp NEB QIDR [facility] Last Admin: 07/30/16 12:16 Dose: 1 amp Aspirin (Asa -) 81 mg PO DAILY [facility] Last Admin: 07/30/16 09:35 Dose: 81 mg Piperacillin Sod/Tazobactam Sod (Zosyn 2.25gm Ivpb (Pre-Docked)) 50 mls @ 100 mls/hr IVPB Q8H-IV [facility] Last Admin: 07/30/16 09:35 Dose: 100 mls/hr Insulin Aspart (Novolog Vial Sliding Scale -) 1 vial SQ ACHS [facility] PRN Reason: Protocol Last Admin: 07/30/16 12:03 Dose: 2 units Levothyroxine Sodium 112 mcg/ (Levothyroxine Sodium 25 mcg) 137 mcg PO DAILY@ 0700 [facility] Last Admin: 07/30/16 06:44 Dose: 137 mcg Metoprolol Succinate (Toprol Xl -) 50 mg PO DAILY [facility] Last Admin: 07/30/16 09:36 Dose: 50 mg Nitroglycerin (Nitro-Bid 2% Paste -) 0.5 inch TD Q6HPO [facility] Last Admin: 07/30/16 12:03 Dose: 0.5 inch Ondansetron HCl (Zofran Injection) 4 mg IVPUSH Q8H PRN PRN Reason: NAUSEA AND/OR VOMITING Last Admin: 07/29/16 07:00 Dose: 4 mg Pantoprazole Sodium (Protonix -) 40 mg PO DAILY [facility] Last Admin: 07/30/16 09:35 Dose: 40 mg - Objective Vital Signs: Vital Signs Temperature 97.9 F 07/30/16 09:01 Pulse Rate 66 07/30/16 12:17 Respiratory Rate 22 07/30/16 09:01 Blood Pressure 129/89 07/30/16 09:01 O2 Sat by Pulse Oximetry (%) 93 L 07/30/16 12:17 Constitutional: Yes: Calm Eyes: Yes: Conjunctiva Clear HENT: Yes: Atraumatic Cardiovascular: Yes: S1, S2 Respiratory: Yes: On Nasal O2, Rhonchi Gastrointestinal: Yes: Soft, Abdomen, Obese Genitourinary: Yes: Hanley Present Musculoskeletal: Yes: Muscle Weakness Edema: Yes Edema: LLE: Trace, RLE: Trace Neurological: Yes: Oriented Labs: CBC, BMP 07/30/16 05:35 07/30/16 05:35 Problem List - Problems (1) ARF (acute renal failure) Code(s): N17.9 - ACUTE KIDNEY FAILURE, UNSPECIFIED Qualifiers: Acute renal failure type: unspecified Qualified Code(s): N17.9 - Acute kidney failure, unspecified (2) CHF (congestive heart failure) Code(s): I50.9 - HEART FAILURE, UNSPECIFIED Qualifiers: Congestive heart failure type: unspecified congestive heart failure type Congestive heart failure chronicity: acute on chronic Qualified Code(s ): I50.9 - Heart failure, unspecified (3) Pneumonia Code(s): J18.9 - PNEUMONIA, UNSPECIFIED ORGANISM Qualifiers: Pneumonia type: due to unspecified organism Laterality: right Lung location: unspecified part of lung Qualified Code(s): J18.9 - Pneumonia, unspecified organism (4) Transaminitis Code(s): R74.0 - NONSPEC ELEV OF LEVELS OF TRANSAMNS & LACTIC ACID DEHYDRGNSE (5) Acute hypercapnic respiratory failure Code(s): J96.02 - ACUTE RESPIRATORY FAILURE WITH HYPERCAPNIA (6) CAD (coronary artery disease) Code(s): I25.10 - ATHSCL HEART DISEASE OF [place] CORONARY ARTERY W/O ANG PCTRS (7) DM2 (diabetes mellitus, type 2) Code(s): E11.9 - TYPE 2 DIABETES MELLITUS WITHOUT COMPLICATIONS (8) GERD (gastroesophageal reflux disease) Code(s): K21.9 - GASTRO-ESOPHAGEAL REFLUX DISEASE WITHOUT ESOPHAGITIS (9) HTN (hypertension) Code(s): I10 - ESSENTIAL (PRIMARY) HYPERTENSION Assessment/Plan Current Medications Generic Name Dose Route Start Last Admin Trade Name Freq PRN Reason Stop Dose Admin Albuterol/Ipratropium 1 amp 07/27/16 12:00 07/30/16 12:16 Duoneb - NEB 1 amp QIDR [facility] Administration Aspirin 81 mg 07/28/16 10:00 07/30/16 09:35 Asa - PO 81 mg DAILY [facility] Administration Piperacillin Sod/Tazobactam Sod 50 mls @ 100 mls/hr 07/27/16 12:45 07/30/16 09: 35 Zosyn 2.25gm Ivpb (Pre-Docked) IVPB 100 mls/hr Q8H-IV [facility] Administration Insulin Aspart 1 vial 07/27/16 16:30 07/30/16 12:03 Novolog Vial Sliding Scale - SQ 2 units ACHS [facility] Administration Protocol Levothyroxine Sodium 112 mcg/ 137 mcg 07/28/16 07:00 07/30/16 06:44 Levothyroxine Sodium 25 mcg PO 137 mcg DAILY@0700 [facility] Administration Metoprolol Succinate 50 mg 07/28/16 10:00 07/30/16 09:36 Toprol Xl - PO 50 mg DAILY [facility] Administration Nitroglycerin 0.5 inch 07/26/16 18:00 07/30/16 12:03 Nitro-Bid 2% Paste - TD 0.5 inch Q6HPO [facility] Administration Ondansetron HCl 4 mg 07/27/16 09:11 07/29/16 07:00 Zofran Injection IVPUSH 4 mg Q8H PRN Administration NAUSEA AND/OR VOMITING Pantoprazole Sodium 40 mg 07/28/16 10:00 07/30/16 09:35 Protonix - PO 40 mg DAILY [facility] Administration Laboratory Tests 07/29/16 07/30/16 05:35 11:55 YAHIR Screen Pending c-ANCA Pending Proteinase 3 (PR3) Pending p-ANCA Pending Atypical p-ANCA Pending Myeloperoxidase Ab Pending Complement C3 Pending Complement C4 Pending Hep Bs Antigen Negative Hep Bs Antibody Non reactive Hepatitis C Antibody 0.3 Laboratory Tests 07/29/16 18:40 Urine Color Yellow Urine Appearance Slcloudy Urine pH 5.0 Ur Specific [employer] 1.015 Urine Protein Negative Urine Glucose (UA) Negative Urine Ketones Negative Urine Blood 1+ H Urine Nitrite Negative Urine Bilirubin Negative Urine Urobilinogen Negative Ur Leukocyte Esterase Negative Urine RBC 53 Urine WBC 9 Impression 1. JEANIE 2. hyperkalemia 3. CHF 4. resp failure requiring bipap 5. HTN 6. PNA 7. COPD 8. hyponatremia 9. trasnaminitis 10. hypothyroidism Plan - renal workup is in progress - added complement levels - will order spep - discussed with cardio, prelim echo may show vegitation, will check compliments - will hold off diuretics until echo is reviewed - renal function is worsening, will evaluate for HD daily - renal function continues to worsen - FENA is 0.39 percent and FEUrea is 23 percent, both of which are consistent with pre-renal disease - low potassium renal diet - cont with bipap as needed - monitor pulse ox - keep on tele monitor - will follow Dr Mahoney
--- NOTE | 2016-07-30 15:02 | CONSULT ---
Admitting History and Physical - Primary Care Physician PCP: Jake Mata - Admission History of Present Illness: Per emr: "Admission 07/27/16 History of Present Illness: 75-year-old female, hypertension, hyperlipidemia, CAD status post CABG, CHF on Lasix and oxygen dependent, PVD, COPD status post surgery for bowel perf/ peritonitis, sent from [facility] for cough with nausea and possibly worsening of her shortness of breath. Patient has history of chronic pedal edema, which is intermittent but for the past 3 weeks has been persistent " Diet ordered 07/29, however, cough noted. Downgraded to puree and sw eval orders placed, Known to me from [facility] 12/27 (-). LPR suspected 02/2016 admission- ""03/04/16 Diagnosis: Peritonitis, perforated colon. -Septic shock. s/p colostomy, POD# 2. -Pt remains intubated, on 2 pressors and propofol. Pt is retaining fluid. -colostomy with bloody drainage. No bowel sounds noted." "02/19/16 -Pt extubated 03/21/16. Pt on bipap during visit. -Pt underwent ex lap/sigmoid colectomy/abscess drainage/colostomy on 03/02. -Pt was in septic shock due to intra-abdominal sepsis/bowel perforation. Pt had remained intubated over the past 1-2 weeks." Tolerated puree and thin liquid during that admission. Pt remembers me from previous w/u. She reports "coughing forever." She is in agreement with staying on thick liquid. Echo noted. Possibly pending intervention. Probably not medically stable for [facility] at this time. History Source: Patient, Medical Record Limitations to Obtaining History: No Limitations - Past Medical History Cardiovascular: Yes: CAD, CHF, HTN, Hyperlipdemia Pulmonary: Yes: COPD ENT: Yes: Allergic Rhinitis Endocrine: Yes: Hypothyroidism - Past Surgical History Past Surgical History: Yes: CABG, Carotid Endarterectomy (BILATERAL WITH REVISION OF BILATERAL CAROTIDS ), Colostomy, Vein Stripping/Ligation - Smoking History Smoking history: Former smoker Have you smoked in the past 12 months: No Aproximately how many cigarettes per day: 0 If you are a former smoker, when did you quit?: 1994 - Alcohol/Substance Use Hx Alcohol Use: No History of Substance Use: reports: None - Social History History of Recent Travel: No History - Admission Reason For Visit: PNA,TRANSAMINITIS,ARF - Diagnostics X-ray: Report Reviewed (RLL infiltrate) - General Mental Status: Alert and Oriented, Awake and Alert, Able to Follow Commands Attention: Intact (sleepy) Ability to Follow Directions: Excellent Head/Neck Control: Impaired (c/o neck pain, supported by pillow.) - Hearing Hearing: Functional Hearing: Normal Hearing Aide: No Speech Evaluation - Communication Primary Language: ICELANDIC Communication: Yes: Within Normal Limits Oral Expression Ability: Yes: No Impairment - Speech Production Able to Make Needs Known: Yes: WNL Intelligibility: Yes: WNL - Speech Characteristics Voice Loudness: Mildly Soft/Quiet Voice Pitch: Yes: Normal Voice Phonatory-based Quality: Yes: Normal Speech Pattern: Normal Speech Clarity: < 100% Nasal Resonance: Normal Articulation: Yes: Precise Rate of Speech: Intact - Language/Auditory Comprehension Follows: Yes: 2 Stage Simple Commands - Language/Verbal Expression Able to Respond to Simple Queries: Yes: WNL Able to Communicate Wants and Needs: Yes: WNL Functional Communication Status: Yes: WNL - Memory/Perception correction Memory: Yes: WNL Short Term Memory: Yes: WNL - Swallow Evaluation/Bedside Assessment Current Nutritional Intake: Dysphagia Pureed, [employer]ore Textured Liquids Oral Secretions: Yes: WFL Dentition: Yes: Adequate Facial Symmetry at Rest: Symmetrical Facial Symmetry on Retraction: Symmetrical Facial Movement: Controlled Sensation: Normal Against Resistance Opening: Normal Against Resistance Closing: Normal Pucker Lips: Normal Smile: Normal Lingual Movement: Normal Lingual Speed of Movement: Normal Lingual Movement Strgth Against Opposition: Normal Lingual Movement Characteristics: Normal Velopharyngeal Movement: Normal Laryngeal Elevation: WFL Laryngeal Movement: Able to Palpate Labial Seal: WFL Oral Prep Time: WFL Pocketing: None Timing of Swallow: Delayed Coughing/Throat Clear: Yes (intermittent with and without po trials) Recommendations - Speech Evaluation, Impression/Plan Impression: Pt reports "coughing forever." Suspect intermittent aspiration on thin liquid. She is in agreement with staying on thick liquid. Echo noted. Possibly pending intervention. Probably not medically stable for [facility] at this time. - Dysphagia Impressions/Plan Dysphagia Impressions: Ongoing Evaluation *Silent aspiration: cannot be R/O at bedside Recommendations: Modified Barium Swallow (when medically stable here or following transfer to next facility.) - Recommendations Medication Administration: Crushed with applesauce Liquids: Commodore Thick (avoid ice chips, trial honey thick?if) Supplement: Magic Cup
[2016-07-30 18:20] VITALS: BP 111/86; PULSE 76; TEMP 97.2
[2016-07-31 00:06] LABS: HEP B SURFACE AB Non Reactive (.)
[2016-07-31 08:07] LABS: COMPLEMENT C3 48 mg/dL (82-167); COMPLEMENT C4 11 mg/dL (14-44)
--- NOTE | 2016-07-31 11:58 | EKG ---
Test Reason : Blood Pressure : / mmHG Vent. Rate : 086 BPM Atrial Rate : 086 BPM P-R Int : 188 ms QRS Dur : 102 ms QT Int : 374 ms P-R-T Axes : 084 122 -46 degrees QTc Int : 447 ms NORMAL SINUS RHYTHM LEFT POSTERIOR FASCICULAR BLOCK T WAVE ABNORMALITY, CONSIDER INFERIOR ISCHEMIA ABNORMAL ECG WHEN COMPARED WITH ECG OF 26-JUL-2016 12:58, MINIMAL CRITERIA FOR ANTERIOR INFARCT ARE NO LONGER PRESENT NON-SPECIFIC CHANGE IN ST SEGMENT IN ANTERIOR LEADS NONSPECIFIC T WAVE ABNORMALITY NO LONGER EVIDENT IN ANTERIOR LEADS Confirmed by THELMA MERCHANT MD ([id number]) on 07/31/2016 11:58:01 AM Referred By: Confirmed By:THELMA MERCHANT MD
[2016-08-01 00:06] LABS: C-ANCA <1:20 titer (Neg:<1:20); MYELOPEROXIDASE ANTIBODY <9.0 U/mL (0.0-9.0); P-ANCA <1:20 titer (Neg:<1:20); PROTEINASE-3 ANTIBODY <3.5 U/mL (0.0-3.5)
[2016-08-02 00:06] LABS: A/G RATIO 0.6 (0.7-1.7); ALBUMIN 2.6 g/dL (2.9-4.4); GLOBULIN, TOTAL 4.2 g/dL (2.2-3.9); M-SPIKE Not Observed g/dL (Not Observed); TOTAL PROTEIN 6.8 g/dL (6.0-8.5)
== END 2016-07-30 23:00 | disposition short-term general hospital (02) | DRG 871 ==
LOC: JER 12:20 → JERBED 14:51 → J4W 16:20
PROVIDERS: ADMIT Family Medicine; ATTEND Family Medicine
PROC: 5A09457 Assistance with Respiratory Ventilation, 24-96 Consecutive Hours, Continuous Positive Airway Pressure (ICD-10-PCS; principal; 2016-07-26)
DX: A41.9 Sepsis, unspecified organism (principal); J18.9 Pneumonia, unspecified organism; J96.02 Acute respiratory failure with hypercapnia; I50.23 Acute on chronic systolic (congestive) heart failure; N17.9 Acute kidney failure, unspecified; E87.1 Hypo-osmolality and hyponatremia; I25.10 Atherosclerotic heart disease of native coronary artery without angina pectoris; Z95.1 Presence of aortocoronary bypass graft; E78.5 Hyperlipidemia, unspecified; J44.9 Chronic obstructive pulmonary disease, unspecified; Z99.81 Dependence on supplemental oxygen; Z87.891 Personal history of nicotine dependence; I11.0 Hypertensive heart disease with heart failure; R74.0 Nonspecific elevation of levels of transaminase and lactic acid dehydrogenase [LDH]; I34.0 Nonrheumatic mitral (valve) insufficiency; I73.9 Peripheral vascular disease, unspecified; I25.5 Ischemic cardiomyopathy; I36.1 Nonrheumatic tricuspid (valve) insufficiency
CPT/HCPCS: 36415; 36600; 71010-TC; 76700-TC; 80048; 80053; 80076; 81003; 81015; 82436; 82550; 82570; 82803; 83036; 83520; 83605; 83690; 83880; 84100; 84133; 84155; 84165; 84300; 84443; 84484; 84540; 85025; 85027; 85730; 86038; 86160; 86256; 86704; 86706; 86708; 86803; 87040; 87086; 87340; 87899; 93005; 93010; 93306-TC; 94640; 94660; 97161-GP; 99285-25; G0480; J1644